=== PATIENT | female | born 1995 | race Caucasian/White ===

== ENCOUNTER → 2017-02-24 | Outpatient (CLI) | payer BC ==
[~2017-02-24] MED LIST: BCPILLS PO; HYDR-5688 PO; TIZA2CAP PO
[2017-02-28 01:02] LABS: CHLAMYDIA TRACH RNA*** NOT DETECTED (NOT DETECTED); GC (NEIS GONORRHOEAE)RNA** NOT DETECTED (NOT DETECTED)
== END | disposition home or self-care (01) ==
LOC: C.LABSPEC 17:17
PROVIDERS: ATTEND Obstetrics & Gynecology
DX: Z01.419 Encounter for gynecological examination (general) (routine) without abnormal findings (principal)

== ENCOUNTER 2017-04-06 04:45 | Emergency (ER) | payer BC ==
[~2017-04-06] VITALS: Ht 172.7 cm; Wt 106.4 kg
[~2017-04-06 04:45] MED LIST changes: -HYDR-5688 PO; -TIZA2CAP PO
[2017-04-06 04:49] VITALS: TEMP 36.5; Ht 172.7 cm; Wt 106.4 kg
[2017-04-06] MEDS ORDERED: ONDANSETRON INJ 2 MG/ML 2 ML VIAL IV STA (05:07)
[2017-04-06] MEDS ORDERED: MoRPHine SULFATE 4 MG/ML 1 ML CARP\\VIAL IV STA (05:07)
[2017-04-06] MEDS ORDERED: SODIUM CHLORIDE 0.9% 1000ML 1,000 ML IV STA ×2 (05:07)
[2017-04-06 05:27] VITALS: O2SAT 98
[2017-04-06 05:27] LABS: BASO % 0.1 %; BASO ABS # 0.02 K/uL (0-0.2); COMPLETE YES; EOS % 0.8 %; HEMATOCRIT 40.2 % (37-47); IG% 0.2 %; LYMPH % 19.7 %; LYMPH ABS # 2.89 K/uL (1.2-3.4); MEAN CELL VOLUME 92.2 fL (80-100); MEAN CORPUSCULAR HEMOGLOBIN 31.9 pg (25-34); MEAN CORPUSCULAR HGB CONC 34.6 g/dl (32-36); MEAN PLATELET VOLUME 8.6 fL (7.4-10.4); MONO % 5.4 %; NEUT % 73.8 %; PLATELET COUNT 273 K/uL (130-400); RED BLOOD COUNT 4.36 M/uL (4.2-5.4); WHITE BLOOD COUNT 14.65 K/uL (4.8-10.8)
[2017-04-06] MEDS ORDERED: TIZA2CAP PO (05:30)
[2017-04-06 05:45] LABS: BUN/CREATININE RATIO 12.6 (10-20); CALCIUM 9.4 mg/dl (8.5-10.1); CREATININE 0.81 mg/dl (0.60-1.20); POTASSIUM 3.8 mmol/L (3.5-5.1)
[2017-04-06 05:50] LABS: MANUAL MICROSCOPIC REQUIRED? NO; REVIEW REQ? NO; URINE APPEARANCE CLEAR (CLEAR); URINE BILIRUBIN NEG (NEG); URINE COLOR YELLOW; URINE EPITHELIAL CELL AUTO >30 /lpf (0-5); URINE NITRITE NEG (NEG); URINE PH 5.5 (4.5-7.5); URINE SPECIFIC GRAVITY 1.024 (1.000-1.030); UROBILINOGEN NEG (NEG); ZZUR CULT IF INDIC CLEAN CATCH YES
[2017-04-06 05:52] LABS: PREG INTERNAL NEGATIVE QC NEG CLEAR BACKGROUND; PREG INTERNAL POSITIVE QC POS CONTROL LINE
[2017-04-06] MEDS ORDERED: ONDANSETRON HOME PACK 4MG OD TAB PO ONE (06:45)
--- NOTE | 2017-04-06 06:48 | EMERGENCY ROOM VISIT NOTE ---
History First contact with patient: 04:55 Chief Complaint: ABDOMINAL PAIN Stated Complaint: RUQ PAIN RADIATES TO BACK Nursing Triage Summary: Pt reports right upper abdominal pain, chest pain, back and flank pain that started at 0330 today and awoke her from sleep. Pt states she had a similar episode 1 week ago and with time it went awake. Pt states that the first time she had similar pain was after eating fatty foods at a fair. Pt's mother states that the pt has been complaining of fullness in right flank area. Hx of SVT History of Present Illness The patient is a 22 year old female who presents to the Emergency Room with complaints of right upper quadrant pain for the past several hours and episode the other day. Patient states she had peach cobbler tonight for dinner and Blooming onion the other day when her symptoms started. Pain currently 8 out of 10. Nothing makes it better or worse. Patient denies chest pain, dyspnea, fever, chills, vomiting, diarrhea, urinary symptoms. Mother states she had her gallbladder out when she is 23 along with other relatives in the family. Review of Systems See HPI for pertinent positives & negatives. A total of 10 systems reviewed and were otherwise negative. Past Medical/Surgical History Medical Problems: (1) SVT (supraventricular tachycardia) Family History FHx: heart disease Hypertension Social History Smoking Status: Never Smoker Housing Status: lives with family Current/Historical Medications Scheduled Control Pills ( Control Pills), 1 TAB PO DAILY Tizanidine (Zanaflex), 2 MG PO TID/PRN Physical Exam Vital Signs Date Time Temp Pulse Resp B/P (MAP) Pulse Ox O2 Delivery O2 Flow Rate FiO2 04/06/17 06:20 60 04/06/17 06:07 64 17 139/70 100 Room Air 04/06/17 05:27 98 Room Air 04/06/17 05:25 59 17 120/72 98 Room Air 04/06/17 04:49 36.5 70 20 134/87 99 Room Air Physical Exam VITALS: Vitals are noted on the nurse's note and reviewed by myself. Vital signs stable. GENERAL: Pleasant female, in no acute distress, nondiaphoretic, well-developed well-nourished. SKIN: The skin was without rashes, erythema, edema, or bruising. There is no tenting of the skin. Capillary reflex less than 2 seconds. HEAD: Normocephalic atraumatic. EARS: External auditory canals clear, tympanic membranes pearly cuellar without erythema or effusion bilaterally. EYES: Pupils equal round and reactive to light and accommodation. Conjunctivae without injection, sclerae without icterus. Extraocular movements intact. NOSE: Patent, turbinates without inflammation or discharge. MOUTH: Mucous membranes moist. Pharynx without erythema or exudate. Uvula midline. Airway patent. Tongue does not deviate. NECK: Supple without nuchal rigidity. No lymphadenopathy. No thyromegaly. Cervical spine is nontender. No JVD. HEART: Regular rate and rhythm without murmurs gallops or rubs. LUNGS: Clear to auscultation bilaterally without wheezes, rales or rhonchi. No dullness to percussion. No retractions or accessory muscle use. ABDOMEN: Positive bowel sounds x 4. Normal tympanic percussion. Soft, tender to palpation right upper quadrant, no CVA tenderness, without masses or organomegaly. No guarding or rebound tenderness. MUSCULOSKELETAL: No muscle atrophy, erythema, or edema noted. NEURO: Patient was alert and oriented to person place and time. Normal sensation to light and sharp touch. No focal neurological deficits. Medical Decision & Procedures Laboratory Results 04/06/17 05:10 Red Blood Count 4.36, Mean Corpuscular Volume 92.2, Mean Corpuscular Hemoglobin 31.9, Mean Corpuscular Hemoglobin Concent 34.6, Mean Platelet Volume 8.6, Neutrophils (%) (Auto) 73.8, Lymphocytes (%) (Auto) 19.7, Monocytes (%) (Auto) 5.4, Eosinophils (%) (Auto) 0.8, Basophils (%) (Auto) 0.1, Neutrophils # (Auto) 10.80, Lymphocytes # (Auto) 2.89, Monocytes # (Auto) 0.79, Eosinophils # (Auto) 0.12, Basophils # (Auto) 0.02 04/06/17 05:10 Test 04/06/17 05:10 04/06/17 05:20 White Blood Count 14.65 K/uL (4.8-10.8) Red Blood Count 4.36 M/uL (4.2-5.4) Hemoglobin 13.9 g/dL (12.0-16.0) Hematocrit 40.2 % (37-47) Mean Corpuscular Volume 92.2 fL (80-100) Mean Corpuscular Hemoglobin 31.9 pg (25-34) Mean Corpuscular Hemoglobin Concent 34.6 g/dl (32-36) Platelet Count 273 K/uL (130-400) Mean Platelet Volume 8.6 fL (7.4-10.4) Neutrophils (%) (Auto) 73.8 % Lymphocytes (%) (Auto) 19.7 % Monocytes (%) (Auto) 5.4 % Eosinophils (%) (Auto) 0.8 % Basophils (%) (Auto) 0.1 % Neutrophils # (Auto) 10.80 K/uL (1.4-6.5) Lymphocytes # (Auto) 2.89 K/uL (1.2-3.4) Monocytes # (Auto) 0.79 K/uL (0.11-0.59) Eosinophils # (Auto) 0.12 K/uL (0-0.5) Basophils # (Auto) 0.02 K/uL (0-0.2) RDW Standard Deviation 41.7 fL (36.4-46.3) RDW Coefficient of Variation 12.4 % (11.5-14.5) Immature Granulocyte % (Auto) 0.2 % Immature Granulocyte # (Auto) 0.03 K/uL (0.00-0.02) Anion Gap 4.0 mmol/L (3-11) Est Creatinine Clear Calc Drug Dose 141.5 ml/min Estimated GFR () 121.2 Estimated GFR (Non- 104.6 BUN/Creatinine Ratio 12.6 (10-20) Calcium Level 9.4 mg/dl (8.5-10.1) Total Bilirubin 0.4 mg/dl (0.2-1) Direct Bilirubin 0.1 mg/dl (0-0.2) Aspartate Amino Transf (AST/SGOT) 63 U/L (15-37) Alanine Aminotransferase (ALT/SGPT) 63 U/L (12-78) Alkaline Phosphatase 90 U/L (45-117) Total Protein 8.1 gm/dl (6.4-8.2) Albumin 3.6 gm/dl (3.4-5.0) Lipase 181 U/L (73-393) Human Chorionic Gonadotropin, Qual NEG (NEG) Urine Color YELLOW Urine Appearance CLEAR (CLEAR) Urine pH 5.5 (4.5-7.5) Urine Specific [place] 1.024 (1.000-1.030) Urine Protein NEG (NEG) Urine Glucose (UA) NEG (NEG) Urine Ketones NEG (NEG) Urine Occult Blood NEG (NEG) Urine Nitrite NEG (NEG) Urine Bilirubin NEG (NEG) Urine Urobilinogen NEG (NEG) Urine Leukocyte Esterase TRACE (NEG) Urine WBC (Auto) 1-5 /hpf (0-5) Urine RBC (Auto) 0-4 /hpf (0-4) Urine Hyaline Casts (Auto) 1-5 /lpf (0-5) Urine Epithelial Cells (Auto) >30 /lpf (0-5) Urine Bacteria (Auto) 1+ (NEG) Medications Administered Medications (Trade) Dose Ordered Sig/Miryam Route Start Time Stop Time Status Last Admin Dose Admin Morphine Sulfate (MoRPHine SULFATE INJ) 4 mg NOW STAT IV 04/06/17 05:07 04/06/17 05:08 DC 04/06/17 05:20 4 MG Ondansetron HCl (Zofran Inj) 4 mg NOW STAT IV 04/06/17 05:07 04/06/17 05:08 DC 04/06/17 05:20 4 MG Sodium Chloride 1,000 ml @ 999 mls/hr Q1H1M STAT IV 04/06/17 05:07 04/06/17 06:07 DC 04/06/17 05:21 999 MLS/HR Sodium Chloride 1,000 ml @ 125 mls/hr Q8H STAT IV 04/06/17 05:07 04/06/17 13:06 04/06/17 05:21 125 MLS/HR ED Course Prior records/ancillary studies reviewed. Triage Nursing notes reviewed. Additional history obtained from family. The patient's history was concerning for abdominal pain. Differential diagnosis: Etiologies such as appendicitis, diverticulitis, PUD, biliary pathology, UTI, pancreatitis, obstruction, mesenteric ischemia, aortic pathology, infections, inflammatory bowel disease, renal colic, as well as others were entertained. Physical examination findings: As above. ER treatment provided: Morphine, Zofran, IV fluids On reassessment the patient felt better. Diagnostics interpreted by me: The labs revealed mild leukocytosis. Negative hCG. Negative urine Imaging studies: US RUQ: Gallbladder is packed of gallstones. No gallbladder wall thickening or pericholecystic fluid. Positive sonographic Hughes's sign. The common bile duct measures up to 3.8 mm. The liver, pancreas, and right kidney are unremarkable. Radiologist: Eliseo Powers MD Exam and history seem consistent with biliary colic. Patient was neurovascularly and neurologically intact. Patient did not have acute abdomen on exam. She is well-appearing. She is tolerating fluids. Her pain was managed. She is advised follow-up family care in a few days for further workup on her gallbladder and to avoid fatty foods. She is advised to return to the ER immediately for severe pain, fevers, vomiting, worsening signs or symptoms or as needed.By the evaluation outlined above emergent etiologies such as appendicitis, diverticulitis, PUD, UTI, pancreatitis, obstruction, mesenteric ischemia, aortic pathology, infections, inflammatory bowel disease, renal colic , as well as others were deemed relatively unlikely. The pt informed about the findings as listed above. All questions were answered and pleased with the treatment. Return instructions were outlined and the patient was discharged in stable condition. Outpatient prescription management: [email or web address] Referral: The patient was referred back to their primary care physician for follow-up in 2 to 3 days for a recheck of the current condition. Case reviewed by attending. Medical Decision As above Medication Reconcilliation Current Medication List: was personally reviewed by me Blood Pressure Screening Patient's blood pressure: Normal blood pressure Impression Primary Impression: Biliary colic Departure Information Dispostion Home / Self-Care Condition GOOD Referrals Dima Rose M.D. (PCP) Patient Instructions My [facility] Additional Instructions DO NOT drive, drink alcohol, operate machinery, or perform dangerous activities today. You were given medications in the ER that can affect your ability to safely function or operate a vehicle. Recommend avoid fatty foods as this can cause gallbladder attacks. Recommend bland diet. Recommend outpatient HIDA scan for further workup on your gallbladder. Family care doctor can order this. Ibuprofen(Motrin, Advil) may be used for fever or pain. Use 600mg every six hours as needed. Take with food. Avoid using more than 2400mg in a 24 hour period. Do not use 2400mg per day for more than three consecutive days without physician direction. Prolonged inappropriate use can lead to stomach upset or ulcers. (AND/OR) Acetaminophen(Tylenol) may be used for fever or pain. Use 1000mg every six hours as needed. Avoid using more than 3000mg in a 24 hour period. Zofran 4mg: Take one every six hours as needed for nausea. Avoid alcohol, operating machinery or dangerous equipment, working on ladders or roofs, DRIVING , or situations where being under the influence may be dangerous. Rest and drink plenty of fluids as tolerated. Slow sips of water or sports drinks are recommended instead of large amounts all at once. Continue current medications. Return to the ER immediately for worsening or persistent abdominal pain, vomiting, fevers, chest pains, difficulty breathing, black or bloody stools, worsening of your condition, or as needed. Follow up with your primary physician in 2-3 days for a recheck of your current condition.
[2017-04-06 07:00] VITALS: BP 102/74; PULSE 52; O2SAT 99
[2017-04-06] MEDS ORDERED: OXYCODONE IR HOME PACK PO ONE (07:00)
--- NOTE | 2017-04-06 07:14 | DIAGNOSTIC IMAGING REPORT ---
ABDOMINAL ULTRASOUND, RIGHT UPPER QUADRANT HISTORY: Right upper quadrant pain. COMPARISON: None. FINDINGS: Liver is sonographically normal. There is no biliary ductal dilatation. The common bile duct measures 4 mm in caliber. The gallbladder is filled with gallstones. There is no gallbladder wall thickening or pericholecystic fluid. A sonographic Hughes sign was reported by the technologist. The pancreatic body is normal. The head and tail are partially obscured by overlying bowel gas. There is no right hydronephrosis. IMPRESSION: 1. Gallbladder filled with gallstones. No gallbladder wall thickening or pericholecystic fluid. Sonographic Hughes sign reported by the technologist. A hepatobiliary scan could be performed as indicated. 2. No biliary ductal dilatation. 3. Partially obscured pancreas. Electronically signed by: Edward Mason M.D. 04/06/2017 7:12 AM Dictated Date/Time: 04/06/2017 7:09 AM
[2017-04-10] MEDS ORDERED: HYDR-5688 PO (10:04)
== END 2017-04-06 07:00 | disposition home or self-care (01) ==
LOC: C.EDB 04:46 → C.EDA 07:00
DX: K80.50 Calculus of bile duct without cholangitis or cholecystitis without obstruction (principal); I47.1 Supraventricular tachycardia; Z79.3 Long term (current) use of hormonal contraceptives; Z79.899 Other long term (current) drug therapy

== ENCOUNTER 2017-04-10 07:26 | Day surgery (SDC) | payer BC ==
[2017-04-07 10:54] VITALS: BMI 35.0
[2017-04-10] VITALS (8 sets, daily range): BP systolic 104–131; BP diastolic 61–74; PULSE 57–83; TEMP 36.6–37; O2SAT 96–99; Ht 172.7 cm; Wt 104.5 kg
[~2017-04-10] VITALS: Ht 172.7 cm; Wt 104.5 kg
[~2017-04-10 07:26] MED LIST changes: +CEFUROXIME IV 1,500 MG in DEXTROSE 5% 100ML IV SCH; +LACTATED RINGER'S 1000ML 1,000 ML IV SCH; +TIZA2CAP PO
[2017-04-10] MEDS ORDERED: FENTANYL CITRATE INJ 50 MCG/1 ML 2 ML VIAL ONE ×2 (07:51→09:02)
[2017-04-10] MEDS ORDERED: MIDAZOLAM HCL 1 MG/ML 2ML VIAL ONE (07:51)
--- NOTE | 2017-04-10 08:29 | History & Physical Bridge Note ---
H&P Re-Evaluation Bridge Note: I have examined the patient, reviewed the History & Physical and in the interval since the performance of the History & Physical I have noted the following changes of clinical significance: No changes noted
[2017-04-10] MEDS ORDERED: BUPIVACAINE 0.5 % 5 MG/1 ML MPF 30ML VIAL ONE (08:32)
[2017-04-10] MEDS ORDERED: PROPOFOL IV EMULSION 10 MG/ML 20 ML VIAL IV ONE (09:01)
[2017-04-10] MEDS ORDERED: DEXAMETHASONE SOD INJ 4 MG/ML VIAL ONE (09:01)
[2017-04-10] MEDS ORDERED: LARYING-O-JET KIT (LTA) ONE ×2 (09:01)
[2017-04-10] MEDS ORDERED: CISATRACURIUM BESYLATE IV SOLN 2 MG/ML 10 ML VIAL ONE (09:01)
[2017-04-10] MEDS ORDERED: ONDANSETRON INJ 2 MG/ML 2 ML VIAL ONE (09:01)
[2017-04-10] MEDS ORDERED: KETOROLAC TROMETHAMINE 30 MG/ML VIAL ONE (09:01)
[2017-04-10] MEDS ORDERED: GLYCOPYRROLATE INJ 0.2 MG/ML VIAL ONE (09:01)
[2017-04-10] MEDS ORDERED: NEOSTIGMINE METHYLSULFATE 5 MG/5 ML SYR ONE (09:01)
[2017-04-10] MEDS ORDERED: LIDOCAINE HCL 2% 2 ML VIAL (20MG/ML) ONE (09:01)
[2017-04-10] MEDS ORDERED: ATROPINE SULFATE 0.1 MG/ML 5ML SYR IV PRN (09:45)
[2017-04-10] MEDS ORDERED: NALOXONE HCL 0.4 MG/1 ML VIAL/CARP IV PRN (09:45)
[2017-04-10] MEDS ORDERED: HYDROmorphone INJ 1 MG/ML SYR IV PRN (09:45)
[2017-04-10] MEDS ORDERED: FLUMAZENIL 0.1 MG/1 ML 10 ML VIAL IV PRN (09:45)
[2017-04-10] MEDS ORDERED: EpHEDrine SULFATE INJ 50 MG/ML AMP IV PRN (09:45)
[2017-04-10] MEDS ORDERED: ONDANSETRON INJ 2 MG/ML 2 ML VIAL IV PRN ×2 (09:45→10:00)
[2017-04-10] MEDS ORDERED: PROMETHAZINE HCL INJ 12.5 MG in SODIUM CHLORIDE 0.9% 50ML 50 ML IV PRN (09:45)
[2017-04-10] MEDS ORDERED: LACTATED RINGER'S 1000ML 1,000 ML IV SCH ×2 (09:54→11:15)
--- NOTE | 2017-04-10 09:54 | [facility] Operative Report ---
Operative Report Operative Date Apr 10, 2017. Pre-Operative Diagnosis Cholelithiasis Post-Operative Diagnosis Same Procedure(s) Performed Laparoscopic Cholecystectomy Surgeon Dr Hoskins Skiff Operator Surgeon(s) Juan Albert PA-C Estimated Blood Loss 10ML Findings chronic cholecystitis with gb full of stones Specimens A. Gallbladder Anesthesia gen Complication(s) None Disposition Recovery Room / PACU I attest to the content of the Intraoperative Record and any orders documented therein. Any exceptions are noted below.
[2017-04-10] MEDS ORDERED: MoRPHine SULFATE 2 MG/ML CARP IV PRN (10:00)
[2017-04-10] MEDS ORDERED: PROMETHAZINE HCL INJ 25 MG in SODIUM CHLORIDE 0.9% 50ML 50 ML IV PRN (10:00)
[2017-04-10] MEDS ORDERED: HYDROCODONE/ACETAMOPHEN 5/325MG TAB PO PRN (10:00)
[2017-04-10] MEDS ORDERED: HYDR-5688 PO (10:04)
--- NOTE | 2017-04-10 10:05 | Discharge Instructions ---
Discharge Instructions Date of Service Apr 10, 2017. Admission Reason for Admission: Chronic Cholecystitis Discharge Discharge Diagnosis / Problem: chronic cholecystitis Discharge Goals Goal(s): Decrease discomfort, Improve function, Improve disease control Activity Recommendations Activity Limitations: as noted below Lifting Limitations: no more than 25 pounds Exercise/Sports Limitations: until after follow-up appointment May Resume Sexual Activity: when tolerated Shower/Bathe: tomorrow Driving or Machine Use: resume 3 days after discharge SPECIAL CARE INSTRUCTIONS: * Cover incisions and change daily for comfort/drainage. may leave uncovered with dermabond * May use ibuprofen for pain as tolerated. * Expect some swelling and bruising. Call your doctor if: * Temperature above 101 degrees * Pain not relieved by pain medicine ordered * There is increased drainage or redness from any incision * You have any unanswered questions or concerns [phone]. FOLLOW UP VISIT: If not already scheduled, please call the office for a follow-up visit. for next week- some suture removal OFFICE PHONE NUMBER: Dr. Hoskins Office . Current Hospital Diet Patient's current hospital diet: Regular Diet Discharge Diet Recommended Diet: Regular Diet Procedures Procedures Performed: Laparoscopic Cholecystectomy Pending Studies Studies pending at discharge: no Medical Emergencies . Who to Call and When: Medical Emergencies: If at any time you feel your situation is an emergency, please call 911 immediately. . Non-Emergent Contact Non-Emergency issues call your: Primary Care Provider, Surgeon . "Provider Documentation" section prepared by Bobby Hoskins. . VTE Core Measure Inpt VTE Proph given/why not?: SCD's
[2017-04-10] MEDS ORDERED: HYDROmorphone INJ 1 MG/ML SYR ONE (10:07)
--- NOTE | 2017-04-10 10:20 | OPERATIVE REPORT ---
DATE OF OPERATION: 04/10/2017 NAME OF OPERATION: Laparoscopic cholecystectomy. PREOPERATIVE DIAGNOSES: Biliary colic and chronic cholecystitis. POSTOPERATIVE DIAGNOSES: Same. STAFF SURGEON: Bobby Hoskins MD WAREHOUSE INVENTORY CLERK: Max Albert PA-C ANESTHESIA: General. PROCEDURE: The patient was brought in the operating room and placed on the operating table in supine position. Pneumatic stockings and orogastric tube were placed. Using 0.5% plain Marcaine, all incisions were anesthetized. Incision was made above the umbilicus, carrying dissection down to the fascia, placing a Veress needle producing pneumoperitoneum. An 11 mm port was placed at this level and then under visualization, three 5 mm ports were placed, 1 cephalad and 2 laterally. Gallbladder was grasped and retracted. She did have multiple gallstones with a large stone in the neck of the gallbladder. Dissection was carried out at the candace hepatis, identifying the cystic duct, which was clipped and transected and the cystic artery identified, clipped and transected, then the gallbladder dissected away from the liver bed. There was evidence of chronic cholecystitis. The gallbladder was then placed in an Endobag. After appropriate hemostasis and irrigation, the Endobag was removed through the umbilical site. We did have to enlarge the skin and fascial defects because of the numerous large stones within the gallbladder. At this point, the fascia at the umbilicus closed using interrupted 0 PDS suture. Skin and subcutaneous tissue reapproximated using 2-0 plain catgut suture then the skin reapproximated at the umbilicus using 5-0 Prolene suture. Other sites were closed using subcuticular 4-0 Monocryl and Dermabond. The patient was transferred to recovery room in stable condition. I attest to the content of the Intraoperative Record and any orders documented therein. Any exception s are noted below.
--- NOTE | 2017-04-10 10:57 | Anesthesiology Progress Note ---
Anesthesia Post Op Note Date & Time Apr 10, 2017 at 10:57 Vital Signs Pain Intensity: 4 Vital Signs Past 12 Hours Date Time Temp Pulse Resp B/P (MAP) Pulse Ox O2 Delivery O2 Flow Rate FiO2 04/10/17 10:50 36.2 49 12 129/78 100 Nasal Cannula 2 04/10/17 10:40 47 12 126/82 100 Nasal Cannula 2 04/10/17 10:30 47 17 130/82 100 Nasal Cannula 2 04/10/17 10:20 47 12 132/85 100 Oxymask 10 04/10/17 10:10 48 15 130/82 100 Oxymask 10 04/10/17 10:03 36.4 69 16 148/78 100 Oxymask 10 04/10/17 07:40 37 63 18 117/62 (80) 99 Room Air Notes Mental Status: alert / awake / arousable, participated in evaluation Pt Amnestic to Procedure: Yes Nausea / Vomiting: adequately controlled Pain: adequately controlled Airway Patency, RR, SpO2: stable & adequate BP & HR: stable & adequate Hydration State: stable & adequate Anesthetic Complications: no major complications apparent
[2017-04-10] MEDS ORDERED: IV FLUIDS COMPLETED PRN (11:45)
[2017-04-10] MEDS: MoRPHine SULFATE 4 MG/ML 1 ML CARP\\VIAL IV PRN ×2 (12:36→21:18)
[2017-04-10] MEDS: CEFUROXIME IV 1,500 MG in DEXTROSE 5% 100ML 100 ML IV SCH (16:16)
[2017-04-10] MEDS: KETOROLAC TROMETHAMINE 30 MG/ML VIAL IV. SCH ×2 (16:17→21:08)
[2017-04-10] MEDS: HYDROCODONE/ACETAMOPHEN 5/325MG TAB PO PRN (21:07)
[2017-04-11] MEDS: CEFUROXIME IV 1,500 MG in DEXTROSE 5% 100ML 100 ML IV SCH (00:07)
[2017-04-11 03:55] VITALS: BP 116/72; PULSE 74; TEMP 36.7; O2SAT 98
[2017-04-11] MEDS: HYDROCODONE/ACETAMOPHEN 5/325MG TAB PO PRN ×2 (05:58→10:59)
--- NOTE | 2017-04-11 07:28 | DISCHARGE SUMMARY ---
PRINCIPAL DIAGNOSIS: Chronic cholecystitis. PROCEDURES: The patient underwent laparoscopic cholecystectomy. HISTORY OF PRESENT ILLNESS: The patient is a 22-year-old female who recently visited the ER with abdominal pain and found with her gallbladder to be packed full of gallstones. HOSPITAL COURSE: The patient was brought in the hospital on 04/10/2017 where she underwent laparoscopic cholecystectomy. She did tolerate the procedure very well. Her gallbladder was completely full of relatively small gallstones and some larger gallstones with stones in the neck of the gallbladder. She is doing quite well overnight and is felt stable for discharge home today to be followed in the surgical clinic next week.
[2017-04-11 07:52] VITALS: BP 99/65; PULSE 54; TEMP 36.6; O2SAT 97
[2017-04-11 10:45] VITALS: BP 99/65; PULSE 54; TEMP 36.6; O2SAT 97
== END 2017-04-11 11:09 | disposition home or self-care (01) ==
LOC: C.ACU 07:26 → C.MSN 09:58 → ENRESERV 11:34
PROVIDERS: ADMIT Surgery; ATTEND Surgery
DX: K80.60 Calculus of gallbladder and bile duct with cholecystitis, unspecified, without obstruction (principal); F41.8 Other specified anxiety disorders; Z90.89 Acquired absence of other organs; Z82.49 Family history of ischemic heart disease and other diseases of the circulatory system; Z80.52 Family history of malignant neoplasm of bladder; Z80.0 Family history of malignant neoplasm of digestive organs; Z98.1 Arthrodesis status; M41.34 Thoracogenic scoliosis, thoracic region; E66.01 Morbid (severe) obesity due to excess calories

== ENCOUNTER 2017-11-21 10:52 | Inpatient (IN) | payer BC ==
[~2017-11-21] VITALS: Ht 175.3 cm; Wt 93.4 kg
[~2017-11-21 10:52] MED LIST changes: -CEFUROXIME IV 1,500 MG in DEXTROSE 5% 100ML IV SCH; -LACTATED RINGER'S 1000ML 1,000 ML IV SCH
[2017-11-21] MEDS ORDERED: LIDOCAINE HCL 2% VISC SOLN 20 ML UDC PO STA (12:01)
[2017-11-21] MEDS ORDERED: HYDROmorphone INJ 0.5 MG/0.5 ML SYR IV STA ×2 (12:01→12:30)
[2017-11-21] MEDS ORDERED: SODIUM CHLORIDE 0.9% 1000ML 1,000 ML IV STA ×2 (12:01→13:58)
[2017-11-21] MEDS ORDERED: FAMOTIDINE 20MG/5ML IV PUSH IV STA (12:01)
[2017-11-21] MEDS ORDERED: ALUMINUM/MAGNESIUM SUSP 30 ML UDC PO STA (12:01)
[2017-11-21] MEDS ORDERED: ONDANSETRON INJ 2 MG/ML 2 ML VIAL IV STA (12:01)
[2017-11-21 12:07] LABS: BASO % 0.1 %; BASO ABS # 0.01 K/uL (0-0.2); EOS % 0.1 %; EOS ABS # 0.02 K/uL (0-0.5); HEMOGLOBIN 15.1 g/dL (12.0-16.0); IG# 0.03 K/uL (0.00-0.02); LYMPH % 8.8 %; LYMPH ABS # 1.66 K/uL (1.2-3.4); MEAN CELL VOLUME 88.8 fL (80-100); MEAN CORPUSCULAR HEMOGLOBIN 31.9 pg (25-34); MONO % 6.1 %; MONO ABS # 1.15 K/uL (0.11-0.59); NEUT % 84.7 %; NEUT ABS # 16.06 K/uL (1.4-6.5); PLATELET COUNT 249 K/uL (130-400); RED CELL DISTRIBUTION WIDTH CV 12.6 % (11.5-14.5); RED CELL DISTRIBUTION WIDTH SD 40.5 fL (36.4-46.3); WHITE BLOOD COUNT 18.93 K/uL (4.8-10.8)
[2017-11-21 12:25] LABS: ALBUMIN 3.9 gm/dl (3.4-5.0); CALCIUM 9.8 mg/dl (8.5-10.1); CREATININE 0.78 mg/dl (0.60-1.20); POTASSIUM 3.7 mmol/L (3.5-5.1)
[2017-11-21 12:28] LABS: TOTAL PROTEIN 8.8 gm/dl (6.4-8.2)
[2017-11-21] MEDS ORDERED: OPTIRAY 320 IV PRN (12:45)
--- NOTE | 2017-11-21 13:21 | DIAGNOSTIC IMAGING REPORT ---
CT SCAN OF THE ABDOMEN AND PELVIS WITH IV CONTRAST CLINICAL HISTORY: Epigastric abdominal pain. COMPARISON STUDY: Abdominal ultrasound dated 04/06/2017. TECHNIQUE: Following the IV administration of 94 cc of Optiray 320, CT scan of the abdomen and pelvis is performed from the lung bases to the proximal femora. Images are reviewed in the axial, sagittal, and coronal planes. IV contrast was administered without complication. A dose lowering technique was utilized adhering to the principles of ALARA. The examination is degraded by streak artifact from metallic orthopedic spinal hardware. FINDINGS: Lung bases: The heart is normal in size and without pericardial effusion. The lung bases are clear noting dependent atelectasis. Bilateral nipple piercings are noted. Liver: The contrast-enhanced liver is normal in size, contour, and attenuation. There is mild central intrahepatic biliary ductal dilatation. The hepatic veins and portal veins are patent. Gallbladder: Surgically absent noting clips in the gallbladder fossa. Spleen: Normal in size and attenuation. Pancreas: The pancreas appears mildly edematous. Peripancreatic stranding and fluid is identified. Fluid is also seen tracking inferiorly within the right retroperitoneal space. The appearance is consistent with acute pancreatitis. The gland enhances homogeneously. No organized peripancreatic fluid collection is identified. The splenic vein is patent. Adrenal glands: Unremarkable. Kidneys: The contrast enhanced kidneys are normal in size and without hydronephrosis. The kidneys enhance symmetrically. Abdominal vasculature: The abdominal aorta is normal in course and caliber. Bowel: The small bowel and colon are normal in course and caliber. The appendix is normal as visualized. Peritoneum: There is no intraperitoneal free air or abdominal ascites. Lymphadenopathy: None. Pelvic viscera: The bladder, uterus, and adnexa are normal as visualized. Small ovarian follicles are noted. Trace free fluid is identified in the cul-de-sac. Skeletal structures: No lytic or blastic lesions are seen. Fusion hardware is noted at the thoracolumbar junction. Mild thoracolumbar scoliosis is observed. Mild sclerotic change is noted in the sacroiliac joints. IMPRESSION: 1. Findings are consistent with acute pancreatitis. 2. The pancreas enhances homogeneously. The splenic vein is patent and no organized peripancreatic fluid collection is identified. Electronically signed by: Paulo Almaguer M.D. 11/21/2017 1:19 PM Dictated Date/Time: 11/21/2017 1:14 PM
--- NOTE | 2017-11-21 13:26 | DIAGNOSTIC IMAGING REPORT ---
CT ANGIOGRAPHY OF THE CHEST, PULMONARY EMBOLUS PROTOCOL CLINICAL HISTORY: Epigastric and back pain. Elevated d-dimer. COMPARISON STUDY: No previous studies for comparison. TECHNIQUE: Following IV administration of 94 mL of Optiray-320, helical axial images of the chest were obtained utilizing the pulmonary embolus protocol. Maximal intensity projections and sagittal and coronal reformats were viewed on an independent 3D workstation. IV contrast was administered without complication. A dose lowering technique was utilized adhering to the principles of ALARA. CT DOSE: 987.92 mGy.cm FINDINGS: No central or lobar pulmonary emboli are identified. The segmental and subsegmental pulmonary arteries are suboptimally assessed due to streak artifact from the scoliosis hardware as well as suboptimal vascular opacification. The size of the heart is normal. There is no thoracic aortic dissection. Central airways are patent. There is no consolidation. No pneumothorax or pleural effusion is noted. There is no consolidation to suggest pneumonia. Mild subpleural bilateral lower lobe opacities reflect atelectasis. IMPRESSION: 1. No central or lobar pulmonary emboli. Segmental and subsegmental pulmonary arteries suboptimally assessed due to streak artifact from the spinal hardware and suboptimal vascular opacification. 2. No acute intrathoracic findings. Electronically signed by: Edward Mason M.D. 11/21/2017 1:24 PM Dictated Date/Time: 11/21/2017 1:14 PM
[2017-11-21] MEDS: HYDROmorphone INJ 0.5 MG/0.5 ML SYR IV PRN ×4 (14:13→23:06)
[2017-11-21] MEDS ORDERED: ONDANSETRON INJ 2 MG/ML 2 ML VIAL IV PRN (15:00)
[2017-11-21] MEDS ORDERED: NORETAB3 PO (15:11)
--- NOTE | 2017-11-21 16:26 | DIAGNOSTIC IMAGING REPORT ---
ULTRASOUND RIGHT UPPER QUADRANT ABDOMEN CLINICAL HISTORY: Epigastric abdominal pain. Pancreatitis. COMPARISON STUDY: Abdominal CT dated 11/21/2017. TECHNIQUE: Real-time, grayscale, and color flow sonography of the right upper quadrant of the abdomen was performed. Images are reviewed in the transverse and longitudinal planes. FINDINGS: Liver: The liver is normal in size and echotexture. There is no intrahepatic biliary ductal dilatation. The main portal vein is patent. Gallbladder: The gallbladder is surgically absent. The common bile duct measures up to 0.4 cm in diameter. No filling defects identified within the common duct by ultrasound. Pancreas: Visualized portions of the pancreatic head and body are normal in appearance. The splenic vein is patent. Right kidney: Survey images of the right kidney demonstrate normal size and echotexture. There is no hydronephrosis. Ascites: None. IMPRESSION: Unremarkable sonographic assessment of the right upper quadrant noting status post cholecystectomy. No intra or extrahepatic biliary ductal dilatation is identified. Electronically signed by: Paulo Almaguer M.D. 11/21/2017 4:24 PM Dictated Date/Time: 11/21/2017 4:24 PM
[2017-11-21 16:50] VITALS: BP 109/68; PULSE 73; TEMP 36.8; O2SAT 96; O2SAT 98; Ht 175.3 cm; Wt 93.4 kg
--- NOTE | 2017-11-21 17:01 | History and Physical ---
History & Physical Date & Time of Service: Nov 21, 2017 at 15:11 Chief Complaint: Abdominal Pain Into Upper Back Primary Care Physician: Dima Rose M.D. History of Present Illness Source: patient, parent, clinic records, hospital records 22-year-old female presents with acute epigastric pain for the last several days. She reports inability to eat because of severe pain. She denies any nausea or vomiting or diarrhea. Mother adds that patient has had a dull epigastric pain in her abdomen for approximately 1 month. The patient reports some fevers that were not documented at home and some chills. She reports having some recent sinus infections and colds that were not treated by a physician in the last few weeks. Sick contacts included family members. Importantly, 1 month ago her oral contraceptive dose was increased. She is on this for PCO S. She also has a history of SVT that is not recurrent and she is not on atenolol. She is also not on metformin. She has a history of a gallbladder removal last fall for symptomatic cholelithiasis. In the ER, her blood pressure is 124/78 pulse 66 she is afebrile and oxygenating well on room air. Lab work reveals a white count of 19,000, elevated liver enzymes (AST 219/ALT 169/AL P1 20), total bili is 2, total protein is 8.8, lipase is 57,000, troponin is negative. EKG reveals normal sinus rhythm at a normal rate. Urine test is negative. D-dimer was elevated and following this CTA was performed revealing no PE or other acute pulmonary issues. CT of the abdomen pelvis was consistent with acute pancreatitis. Past Medical/Surgical History Medical Problems: (1) Chronic cholecystitis with calculus Status: Chronic (2) On oral contraceptive pills for non-contraception indication Status: Chronic (3) PCOS (polycystic ovarian syndrome) Status: Chronic (4) SVT (supraventricular tachycardia) Status: Chronic Surgical Problems: (1) Previous back surgery Status: Chronic (2) S/P harley Status: Chronic (3) S/P tonsillectomy Status: Chronic Family History FHx: heart disease Hypertension Social History Smoking Status: Never Smoker Smokeless Tobacco Use: No Alcohol Use: none Drug Use: none Marital Status: single Housing status: lives with family Occupational Status: employed Immunizations History of Influenza Vaccine: Unknown History of Tetanus Vaccine?: Unknown History of Pneumococcal: Unknown History of Hepatitis B Vaccine: Unknown Allergies Coded Allergies: No Known Allergies (Unverified , 11/21/17) Home Medications Scheduled Norethindrone Acet & Eth Estra (), 1 TAB PO UD Tizanidine (Zanaflex), 2 MG PO TID/PRN Review of Systems At least 10 systems were reviewed and negative except as indicated in HPI. Physical Exam Vital Signs Date Time Temp Pulse Resp B/P (MAP) Pulse Ox O2 Delivery O2 Flow Rate FiO2 11/21/17 14:30 76 16 139/76 100 Room Air 11/21/17 13:13 63 11/21/17 12:35 72 18 132/80 99 Room Air 11/21/17 11:07 36.7 66 18 124/78 98 Room Air General Appearance: WD/WN, no apparent distress Head: normocephalic, atraumatic Eyes: normal inspection, PERRL, sclerae normal ENT: normal ENT inspection, hearing grossly normal, pharynx normal Neck: supple, no adenopathy, no JVD, trachea midline Respiratory/Chest: lungs clear, normal breath sounds, no respiratory distress, no accessory muscle use Cardiovascular: regular rate, rhythm, no edema, no gallop, no JVD, no murmur, normal peripheral pulses Abdomen/GI: normal bowel sounds, soft, no organomegaly, + tenderness ( Epigastric) Back: normal inspection Extremities/Musculoskelatal: normal inspection, no calf tenderness, no pedal edema, normal range of motion 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, no motor/sensory deficits, alert, normal mood/affect, oriented x 3 Skin: normal color, warm/dry, no rash Diagnostics Laboratory Results 11/21/17 11:40 Red Blood Count 4.73, Mean Corpuscular Volume 88.8, Mean Corpuscular Hemoglobin 31.9, Mean Corpuscular Hemoglobin Concent 36.0, Mean Platelet Volume 9.0, Neutrophils (%) (Auto) 84.7, Lymphocytes (%) (Auto) 8.8, Monocytes (%) (Auto) 6.1, Eosinophils (%) (Auto) 0.1, Basophils (%) (Auto) 0.1, Neutrophils # (Auto) 16.06, Lymphocytes # (Auto) 1.66, Monocytes # (Auto) 1.15, Eosinophils # (Auto) 0.02, Basophils # (Auto) 0.01 11/21/17 11:40 Test 11/21/17 11:36 11/21/17 11:40 Urine Color DK YELLOW Urine Appearance CLOUDY (CLEAR) Urine pH 5.0 (4.5-7.5) Urine Specific Alden 1.013 (1.000-1.030) Urine Protein NEG (NEG) Urine Glucose (UA) NEG (NEG) Urine Ketones NEG (NEG) Urine Occult Blood NEG (NEG) Urine Nitrite NEG (NEG) Urine Bilirubin 1+ (NEG) Urine Urobilinogen NEG (NEG) Urine Leukocyte Esterase SMALL (NEG) Urine WBC (Auto) 1-5 /hpf (0-5) Urine RBC (Auto) 0-4 /hpf (0-4) Urine Hyaline Casts (Auto) 1-5 /lpf (0-5) Urine Epithelial Cells (Auto) >30 /lpf (0-5) Urine Bacteria (Auto) 1+ (NEG) Urine Pathogenic Casts /lpf (0) Urine Test NEG (NEG) White Blood Count 18.93 K/uL (4.8-10.8) Red Blood Count 4.73 M/uL (4.2-5.4) Hemoglobin 15.1 g/dL (12.0-16.0) Hematocrit 42.0 % (37-47) Mean Corpuscular Volume 88.8 fL (80-100) Mean Corpuscular Hemoglobin 31.9 pg (25-34) Mean Corpuscular Hemoglobin Concent 36.0 g/dl (32-36) Platelet Count 249 K/uL (130-400) Mean Platelet Volume 9.0 fL (7.4-10.4) Neutrophils (%) (Auto) 84.7 % Lymphocytes (%) (Auto) 8.8 % Monocytes (%) (Auto) 6.1 % Eosinophils (%) (Auto) 0.1 % Basophils (%) (Auto) 0.1 % Neutrophils # (Auto) 16.06 K/uL (1.4-6.5) Lymphocytes # (Auto) 1.66 K/uL (1.2-3.4) Monocytes # (Auto) 1.15 K/uL (0.11-0.59) Eosinophils # (Auto) 0.02 K/uL (0-0.5) Basophils # (Auto) 0.01 K/uL (0-0.2) RDW Standard Deviation 40.5 fL (36.4-46.3) RDW Coefficient of Variation 12.6 % (11.5-14.5) Immature Granulocyte % (Auto) 0.2 % Immature Granulocyte # (Auto) 0.03 K/uL (0.00-0.02) D-Dimer 1460 ug/L FEU (0-500) Anion Gap 9.0 mmol/L (3-11) Est Creatinine Clear Calc Drug Dose 140.6 ml/min Estimated GFR () 126.8 Estimated GFR (Non- 109.4 BUN/Creatinine Ratio 6.8 (10-20) Calcium Level 9.8 mg/dl (8.5-10.1) Total Bilirubin 2.0 mg/dl (0.2-1) Aspartate Amino Transf (AST/SGOT) 219 U/L (15-37) Alanine Aminotransferase (ALT/SGPT) 169 U/L (12-78) Alkaline Phosphatase 120 U/L (45-117) Troponin I < 0.015 ng/ml (0-0.045) Total Protein 8.8 gm/dl (6.4-8.2) Albumin 3.9 gm/dl (3.4-5.0) Globulin 4.9 gm/dl (2.5-4.0) Albumin/Globulin Ratio 0.8 (0.9-2) Lipase 09626 U/L (73-393) Date/Time Source Procedure Growth Status 11/21/17 11:36 Urine , Clean Catch Urine Culture Pending Received Results Past 24 Hours Test 11/21/17 11:36 11/21/17 11:40 Range/Units Urine Color DK YELLOW Urine Appearance CLOUDY CLEAR Urine pH 5.0 4.5-7.5 Urine Specific [place] 1.013 1.000-1.030 Urine Protein NEG NEG Urine Glucose (UA) NEG NEG Urine Ketones NEG NEG Urine Occult Blood NEG NEG Urine Nitrite NEG NEG Urine Bilirubin 1+ NEG Urine Urobilinogen NEG NEG Urine Leukocyte Esterase SMALL NEG Urine WBC (Auto) 1-5 0-5 /hpf Urine RBC (Auto) 0-4 0-4 /hpf Urine Hyaline Casts (Auto) 1-5 0-5 /lpf Urine Epithelial Cells (Auto) >30 0-5 /lpf Urine Bacteria (Auto) 1+ NEG Urine Pathogenic Casts 0 /lpf Urine Test NEG NEG White Blood Count 18.93 4.8-10.8 K/uL Red Blood Count 4.73 4.2-5.4 M/uL Hemoglobin 15.1 12.0-16.0 g/dL Hematocrit 42.0 37-47 % Mean Corpuscular Volume 88.8 80-100 fL Mean Corpuscular Hemoglobin 31.9 25-34 pg Mean Corpuscular Hemoglobin Concent 36.0 32-36 g/dl Platelet Count 249 130-400 K/uL Mean Platelet Volume 9.0 7.4-10.4 fL Neutrophils (%) (Auto) 84.7 % Lymphocytes (%) (Auto) 8.8 % Monocytes (%) (Auto) 6.1 % Eosinophils (%) (Auto) 0.1 % Basophils (%) (Auto) 0.1 % Neutrophils # (Auto) 16.06 1.4-6.5 K/uL Lymphocytes # (Auto) 1.66 1.2-3.4 K/uL Monocytes # (Auto) 1.15 0.11-0.59 K/uL Eosinophils # (Auto) 0.02 0-0.5 K/uL Basophils # (Auto) 0.01 0-0.2 K/uL RDW Standard Deviation 40.5 36.4-46.3 fL RDW Coefficient of Variation 12.6 11.5-14.5 % Immature Granulocyte % (Auto) 0.2 % Immature Granulocyte # (Auto) 0.03 0.00-0.02 K/uL D-Dimer 1460 0-500 ug/L FEU Sodium Level 135 136-145 mmol/L Potassium Level 3.7 3.5-5.1 mmol/L Chloride Level 102 98-107 mmol/L Carbon Dioxide Level 25 21-32 mmol/L Anion Gap 9.0 3-11 mmol/L Blood Urea Nitrogen 5 7-18 mg/dl Creatinine 0.78 0.60-1.20 mg/dl Est Creatinine Clear Calc Drug Dose 140.6 ml/min Estimated GFR () 126.8 Estimated GFR (Non- 109.4 BUN/Creatinine Ratio 6.8 10-20 Random Glucose 104 70-99 mg/dl Calcium Level 9.8 8.5-10.1 mg/dl Total Bilirubin 2.0 0.2-1 mg/dl Aspartate Amino Transf (AST/SGOT) 219 15-37 U/L Alanine Aminotransferase (ALT/SGPT) 169 12-78 U/L Alkaline Phosphatase 120 45-117 U/L Troponin I < 0.015 0-0.045 ng/ml Total Protein 8.8 6.4-8.2 gm/dl Albumin 3.9 3.4-5.0 gm/dl Globulin 4.9 2.5-4.0 gm/dl Albumin/Globulin Ratio 0.8 0.9-2 Lipase 32345 73-393 U/L Microbiology Results 11/21/17 Urine Culture, Received Pending Diagnostic Radiology ULTRASOUND RIGHT UPPER QUADRANT ABDOMEN CLINICAL HISTORY: Epigastric abdominal pain. Pancreatitis. COMPARISON STUDY: Abdominal CT dated 11/21/2017. TECHNIQUE: Real-time, grayscale, and color flow sonography of the right upper quadrant of the abdomen was performed. Images are reviewed in the transverse and longitudinal planes. FINDINGS: Liver: The liver is normal in size and echotexture. There is no intrahepatic biliary ductal dilatation. The main portal vein is patent. Gallbladder: The gallbladder is surgically absent. The common bile duct measures up to 0.4 cm in diameter. No filling defects identified within the common duct by ultrasound. Pancreas: Visualized portions of the pancreatic head and body are normal in appearance. The splenic vein is patent. Right kidney: Survey images of the right kidney demonstrate normal size and echotexture. There is no hydronephrosis. Ascites: None. IMPRESSION: Unremarkable sonographic assessment of the right upper quadrant noting status post cholecystectomy. No intra or extrahepatic biliary ductal dilatation is identified. -------- CT SCAN OF THE ABDOMEN AND PELVIS WITH IV CONTRAST CLINICAL HISTORY: Epigastric abdominal pain. COMPARISON STUDY: Abdominal ultrasound dated 04/06/2017. TECHNIQUE: Following the IV administration of 94 cc of Optiray 320, CT scan of the abdomen and pelvis is performed from the lung bases to the proximal femora. Images are reviewed in the axial, sagittal, and coronal planes. IV contrast was administered without complication. A dose lowering technique was utilized adhering to the principles of ALARA. The examination is degraded by streak artifact from metallic orthopedic spinal hardware. FINDINGS: Lung bases: The heart is normal in size and without pericardial effusion. The lung bases are clear noting dependent atelectasis. Bilateral nipple piercings are noted. Liver: The contrast-enhanced liver is normal in size, contour, and attenuation. There is mild central intrahepatic biliary ductal dilatation. The hepatic veins and portal veins are patent. Gallbladder: Surgically absent noting clips in the gallbladder fossa. Spleen: Normal in size and attenuation. Pancreas: The pancreas appears mildly edematous. Peripancreatic stranding and fluid is identified. Fluid is also seen tracking inferiorly within the right retroperitoneal space. The appearance is consistent with acute pancreatitis. The gland enhances homogeneously. No organized peripancreatic fluid collection is identified. The splenic vein is patent. Adrenal glands: Unremarkable. Kidneys: The contrast enhanced kidneys are normal in size and without hydronephrosis. The kidneys enhance symmetrically. Abdominal vasculature: The abdominal aorta is normal in course and caliber. Bowel: The small bowel and colon are normal in course and caliber. The appendix is normal as visualized. Peritoneum: There is no intraperitoneal free air or abdominal ascites. Lymphadenopathy: None. Pelvic viscera: The bladder, uterus, and adnexa are normal as visualized. Small ovarian follicles are noted. Trace free fluid is identified in the cul-de-sac. Skeletal structures: No lytic or blastic lesions are seen. Fusion hardware is noted at the thoracolumbar junction. Mild thoracolumbar scoliosis is observed. Mild sclerotic change is noted in the sacroiliac joints. IMPRESSION: 1. Findings are consistent with acute pancreatitis. 2. The pancreas enhances homogeneously. The splenic vein is patent and no organized peripancreatic fluid collection is identified ------- CT ANGIOGRAPHY OF THE CHEST, PULMONARY EMBOLUS PROTOCOL CLINICAL HISTORY: Epigastric and back pain. Elevated d-dimer. COMPARISON STUDY: No previous studies for comparison. TECHNIQUE: Following IV administration of 94 mL of Optiray-320, helical axial images of the chest were obtained utilizing the pulmonary embolus protocol. Maximal intensity projections and sagittal and coronal reformats were viewed on an independent 3D workstation. IV contrast was administered without complication. A dose lowering technique was utilized adhering to the principles of ALARA. CT DOSE: 987.92 mGy.cm FINDINGS: No central or lobar pulmonary emboli are identified. The segmental and subsegmental pulmonary arteries are suboptimally assessed due to streak artifact from the scoliosis hardware as well as suboptimal vascular opacification. The size of the heart is normal. There is no thoracic aortic dissection. Central airways are patent. There is no consolidation. No pneumothorax or pleural effusion is noted. There is no consolidation to suggest pneumonia. Mild subpleural bilateral lower lobe opacities reflect atelectasis. IMPRESSION: 1. No central or lobar pulmonary emboli. Segmental and subsegmental pulmonary arteries suboptimally assessed due to streak artifact from the spinal hardware and suboptimal vascular opacification. 2. No acute intrathoracic findings. Normal EKG Impression Assessment and Plan 22-year-old female presents with acute pancreatitis. 1. Acute pancreatitis-etiologies include but not limited to oral contraceptive pills (suspect this most likely), possible gallstone or dilated common bile duct status post cholecystectomy, recent infection. The patient denies using alcohol. She reports mild fevers and chills but no symptoms consistent with mono and although she reports some cold symptoms and recent sick contacts she does not feel particularly infected at this time. Sinus infection was reported a couple weeks ago. She did however have her oral contraceptive pill dose increased 1 month ago right around the time the symptoms started to occur with epigastric tenderness and aversion to food. Symptoms got worse in the last few days, and this time course possibly explains the elevated lipase. She is currently hemodynamically stable and is not ill-appearing. Continue pain control, bowel rest with ice chips for comfort, IV hydration. CT scan revealed no abscess or other complication at this time. Follow clinical course of the next 24-48 hours. Holding OCPs at this time. 2. History of SVT-patient reports being on atenolol in the past but then came off of it as she did not want to take a pill every day. She reports no issues with SVT in the last couple of years. As a result of this history and severity of pancreatitis will put her on telemetry overnight. 3. PCOS-oral contraceptive pills being taken for this, menstrual cycles are regular. Patient denies any recent pelvic pain or breakthrough bleeding. 4. Elevated LFTs-likely a result of inflammation from pancreatitis. Trend in am. Not high enough to consider hepatitis and clinical picture is not consistent with this. DVT prophylaxis-Lovenox Full code Disposition-to telemetry. Likely hospitalized minimum of 2 days. Patient should be eating solid food prior to discharge. Nicole Ashraf DO [facility] Hospitalist Resuscitation Status VTE Prophylaxis Will order VTE Prophylaxis: Yes
[2017-11-21] MEDS: SODIUM CHLORIDE 0.9% 1000ML 1,000 ML IV SCH ×2 (17:03→21:55)
[2017-11-21 18:52] VITALS: BP 123/73; PULSE 79
[2017-11-21 19:40] VITALS: BP 123/79; PULSE 80; TEMP 36.6; O2SAT 98
[2017-11-21 20:00] VITALS: O2SAT 98
--- NOTE | 2017-11-21 21:09 | EMERGENCY ROOM VISIT NOTE ---
History First contact with patient: 11:56 Chief Complaint: ABDOMINAL PAIN Stated Complaint: ABDOMINAL PAIN INTO UPPER BACK Nursing Triage Summary: Patient reports "I am having mid abdominal pain for the past couple days. pain seems to be getting worse and going into back." denies urinary problems. reports having reg bowel movements. pt did have gallbladder removed in may. "The pain is in epigatric area of my belly and it goes around into my back, I tried taking TUMS at home but that didn't help." History of Present Illness The patient is a 22 year old female who presents to the Emergency Room with complaints of a two-week history of epigastric pain radiating into the back. The patient reports that the pain is becoming more constant and severe over the past few days. The patient reports undergoing gallbladder removal in March of last year by Dr. Hoskins. She has not had any problems since that time. The patient denies any history of peptic ulcer disease. She has a childhood history of GERD, but denies any problems over the past several years. She denies any urinary symptoms or prior history of kidney stones. She denies , vaginal discharge or recent heavy menstruation. Last menstruation was 3 weeks ago. She currently rates her discomfort a 9 out of 10, describing it as a sharp pain radiating from the stomach into the back. It does not radiate into the chest, shoulder or neck. She denies any chest tightness, shortness of breath or headache. The patient has had nausea without vomiting. Symptoms are not worsened with food intake. Review of Systems HEENT: Denies dizziness, visual problems, hearing loss, tinnitus. Denies difficulty swallowing or oral lesions. PULMONARY: Denies cough, shortness of breath, sputum production or hemoptysis. CARDIOVASCULAR: Denies chest pain, palpitations, dyspnea on exertion, orthopnea or peripheral edema. GASTROINTESTINAL: Denies diarrhea or constipation, otherwise see HPI. GENITOURINARY: Denies dysuria, frequency, urgency or nocturia. NEUROLOGIC: Denies history of epilepsy, CVA, TIA or chronic headaches. MUSCULOSKELETAL: Denies history of joint tenderness/swelling. SKIN: Denies rashes or lesions. PSYCHIATRIC: Denies history of depression or mental illness. ENDOCRINE: Denies history of diabetes or thyroid disorders. Past Medical/Surgical History Medical Problems: (1) Acute pancreatitis (2) Chronic cholecystitis with calculus (3) On oral contraceptive pills for non-contraception indication (4) PCOS (polycystic ovarian syndrome) (5) SVT (supraventricular tachycardia) Surgical Problems: (1) Previous back surgery (2) S/P harley (3) S/P tonsillectomy Family History FHx: heart disease Hypertension Social History Smoking Status: Never Smoker Alcohol Use: occasionally Marital Status: single Housing Status: lives with family Occupation Status: employed Current/Historical Medications Scheduled Norethindrone Acet & Eth Estra (), 1 TAB PO UD Tizanidine (Zanaflex), 2 MG PO TID/PRN Physical Exam Vital Signs Date Time Temp Pulse Resp B/P (MAP) Pulse Ox O2 Delivery O2 Flow Rate FiO2 11/21/17 14:30 76 16 139/76 100 Room Air 11/21/17 13:13 63 11/21/17 12:35 72 18 132/80 99 Room Air 11/21/17 11:07 36.7 66 18 124/78 98 Room Air Physical Exam CONSTITUTIONAL: Healthy and well nourished. Alert and oriented X 3 with positive affect. Patient appears in severe discomfort, and is crying. HEENT: Normocephalic, atraumatic. Pupils equal, round and reactive. Ears and nares are clear. No scleral icterus or conjunctival injection/pallor. NECK: Full active range of motion without discomfort. No JVD or carotid bruits. RESPIRATORY: Clear to auscultation bilaterally with no wheezing, crackles, rhonchi or stridor. CARDIOVASCULAR: Regular rate and rhythm with no murmurs, rubs or gallops. GASTROINTESTINAL: Bowel sounds present in all quadrants. Patient has notable firmness and palpation over the epigastric region. Mildly positive Hughes sign. Patient has no lower abdominal tenderness to palpation, rigidity, guarding or rebound. Negative McBurney's point tenderness. Negative CVA tenderness. MUSCULOSKELETAL: Full range of motion of all joints without discomfort. No tenderness to palpation through the ribs or costochondral joints. The patient also has no tenderness to palpation through the central thoracolumbar spine or paraspinous muscles. INTEGUMENTARY: No rash or other significant dermatologic conditions noted. HEMATOLOGIC: No ecchymosis or petechiae noted. NEUROLOGIC: No focal neurologic deficits noted. Medical Decision & Procedures ER Provider Diagnostic Interpretation: My interpretation of an ECG shows a normal sinus rhythm of [address] elevation or other conduction abnormalities. CT of the chest, abdomen and pelvis shows acute pancreas. Radiologist report is as follows: CT SCAN OF THE ABDOMEN AND PELVIS WITH IV CONTRAST CLINICAL HISTORY: Epigastric abdominal pain. COMPARISON STUDY: Abdominal ultrasound dated 04/06/2017. TECHNIQUE: Following the IV administration of 94 cc of Optiray 320, CT scan of the abdomen and pelvis is performed from the lung bases to the proximal femora. Images are reviewed in the axial, sagittal, and coronal planes. IV contrast was administered without complication. A dose lowering technique was utilized adhering to the principles of ALARA. The examination is degraded by streak artifact from metallic orthopedic spinal hardware. FINDINGS: Lung bases: The heart is normal in size and without pericardial effusion. The lung bases are clear noting dependent atelectasis. Bilateral nipple piercings are noted. Liver: The contrast-enhanced liver is normal in size, contour, and attenuation. There is mild central intrahepatic biliary ductal dilatation. The hepatic veins and portal veins are patent. Gallbladder: Surgically absent noting clips in the gallbladder fossa. Spleen: Normal in size and attenuation. Pancreas: The pancreas appears mildly edematous. Peripancreatic stranding and fluid is identified. Fluid is also seen tracking inferiorly within the right retroperitoneal space. The appearance is consistent with acute pancreatitis. The gland enhances homogeneously. No organized peripancreatic fluid collection is identified. The splenic vein is patent. Adrenal glands: Unremarkable. Kidneys: The contrast enhanced kidneys are normal in size and without hydronephrosis. The kidneys enhance symmetrically. Abdominal vasculature: The abdominal aorta is normal in course and caliber. Bowel: The small bowel and colon are normal in course and caliber. The appendix is normal as visualized. Peritoneum: There is no intraperitoneal free air or abdominal ascites. Lymphadenopathy: None. Pelvic viscera: The bladder, uterus, and adnexa are normal as visualized. Small ovarian follicles are noted. Trace free fluid is identified in the cul-de-sac. Skeletal structures: No lytic or blastic lesions are seen. Fusion hardware is noted at the thoracolumbar junction. Mild thoracolumbar scoliosis is observed. Mild sclerotic change is noted in the sacroiliac joints. IMPRESSION: 1. Findings are consistent with acute pancreatitis. 2. The pancreas enhances homogeneously. The splenic vein is patent and no organized peripancreatic fluid collection is identified. Chest CT angiography does not show any evidence for pulmonary emboli. Radiologist report is as follows: CT ANGIOGRAPHY OF THE CHEST, PULMONARY EMBOLUS PROTOCOL CLINICAL HISTORY: Epigastric and back pain. Elevated d-dimer. COMPARISON STUDY: No previous studies for comparison. TECHNIQUE: Following IV administration of 94 mL of Optiray-320, helical axial images of the chest were obtained utilizing the pulmonary embolus protocol. Maximal intensity projections and sagittal and coronal reformats were viewed on an independent 3D workstation. IV contrast was administered without complication. A dose lowering technique was utilized adhering to the principles of ALARA. CT DOSE: 987.92 mGy.cm FINDINGS: No central or lobar pulmonary emboli are identified. The segmental and subsegmental pulmonary arteries are suboptimally assessed due to streak artifact from the scoliosis hardware as well as suboptimal vascular opacification. The size of the heart is normal. There is no thoracic aortic dissection. Central airways are patent. There is no consolidation. No pneumothorax or pleural effusion is noted. There is no consolidation to suggest pneumonia. Mild subpleural bilateral lower lobe opacities reflect atelectasis. IMPRESSION: 1. No central or lobar pulmonary emboli. Segmental and subsegmental pulmonary arteries suboptimally assessed due to streak artifact from the spinal hardware and suboptimal vascular opacification. 2. No acute intrathoracic findings. Abdominal ultrasound does not show any acute findings, including common bile duct dilatation. Radiologist report is as follows: ULTRASOUND RIGHT UPPER QUADRANT ABDOMEN CLINICAL HISTORY: Epigastric abdominal pain. Pancreatitis. COMPARISON STUDY: Abdominal CT dated 11/21/2017. TECHNIQUE: Real-time, grayscale, and color flow sonography of the right upper quadrant of the abdomen was performed. Images are reviewed in the transverse and longitudinal planes. FINDINGS: Liver: The liver is normal in size and echotexture. There is no intrahepatic biliary ductal dilatation. The main portal vein is patent. Gallbladder: The gallbladder is surgically absent. The common bile duct measures up to 0.4 cm in diameter. No filling defects identified within the common duct by ultrasound. Pancreas: Visualized portions of the pancreatic head and body are normal in appearance. The splenic vein is patent. Right kidney: Survey images of the right kidney demonstrate normal size and echotexture. There is no hydronephrosis. Ascites: None. IMPRESSION: Unremarkable sonographic assessment of the right upper quadrant noting status post cholecystectomy. No intra or extrahepatic biliary ductal dilatation is identified. Laboratory Results 11/21/17 11:40 Red Blood Count 4.73, Mean Corpuscular Volume 88.8, Mean Corpuscular Hemoglobin 31.9, Mean Corpuscular Hemoglobin Concent 36.0, Mean Platelet Volume 9.0, Neutrophils (%) (Auto) 84.7, Lymphocytes (%) (Auto) 8.8, Monocytes (%) (Auto) 6.1, Eosinophils (%) (Auto) 0.1, Basophils (%) (Auto) 0.1, Neutrophils # (Auto) 16.06, Lymphocytes # (Auto) 1.66, Monocytes # (Auto) 1.15, Eosinophils # (Auto) 0.02, Basophils # (Auto) 0.01 11/21/17 11:40 Test 11/21/17 11:36 11/21/17 11:40 Urine Color DK YELLOW Urine Appearance CLOUDY (CLEAR) Urine pH 5.0 (4.5-7.5) Urine Specific [place] 1.013 (1.000-1.030) Urine Protein NEG (NEG) Urine Glucose (UA) NEG (NEG) Urine Ketones NEG (NEG) Urine Occult Blood NEG (NEG) Urine Nitrite NEG (NEG) Urine Bilirubin 1+ (NEG) Urine Urobilinogen NEG (NEG) Urine Leukocyte Esterase SMALL (NEG) Urine WBC (Auto) 1-5 /hpf (0-5) Urine RBC (Auto) 0-4 /hpf (0-4) Urine Hyaline Casts (Auto) 1-5 /lpf (0-5) Urine Epithelial Cells (Auto) >30 /lpf (0-5) Urine Bacteria (Auto) 1+ (NEG) Urine Pathogenic Casts /lpf (0) Urine Test NEG (NEG) White Blood Count 18.93 K/uL (4.8-10.8) Red Blood Count 4.73 M/uL (4.2-5.4) Hemoglobin 15.1 g/dL (12.0-16.0) Hematocrit 42.0 % (37-47) Mean Corpuscular Volume 88.8 fL (80-100) Mean Corpuscular Hemoglobin 31.9 pg (25-34) Mean Corpuscular Hemoglobin Concent 36.0 g/dl (32-36) Platelet Count 249 K/uL (130-400) Mean Platelet Volume 9.0 fL (7.4-10.4) Neutrophils (%) (Auto) 84.7 % Lymphocytes (%) (Auto) 8.8 % Monocytes (%) (Auto) 6.1 % Eosinophils (%) (Auto) 0.1 % Basophils (%) (Auto) 0.1 % Neutrophils # (Auto) 16.06 K/uL (1.4-6.5) Lymphocytes # (Auto) 1.66 K/uL (1.2-3.4) Monocytes # (Auto) 1.15 K/uL (0.11-0.59) Eosinophils # (Auto) 0.02 K/uL (0-0.5) Basophils # (Auto) 0.01 K/uL (0-0.2) RDW Standard Deviation 40.5 fL (36.4-46.3) RDW Coefficient of Variation 12.6 % (11.5-14.5) Immature Granulocyte % (Auto) 0.2 % Immature Granulocyte # (Auto) 0.03 K/uL (0.00-0.02) Prothrombin Time 10.1 SECONDS (9.0-12.0) Prothromb Time International Ratio 1.0 (0.9-1.1) D-Dimer 1460 ug/L FEU (0-500) Anion Gap 9.0 mmol/L (3-11) Est Creatinine Clear Calc Drug Dose 140.6 ml/min Estimated GFR () 126.8 Estimated GFR (Non- 109.4 BUN/Creatinine Ratio 6.8 (10-20) Calcium Level 9.8 mg/dl (8.5-10.1) Total Bilirubin 2.0 mg/dl (0.2-1) Aspartate Amino Transf (AST/SGOT) 219 U/L (15-37) Alanine Aminotransferase (ALT/SGPT) 169 U/L (12-78) Alkaline Phosphatase 120 U/L (45-117) Troponin I < 0.015 ng/ml (0-0.045) Total Protein 8.8 gm/dl (6.4-8.2) Albumin 3.9 gm/dl (3.4-5.0) Globulin 4.9 gm/dl (2.5-4.0) Albumin/Globulin Ratio 0.8 (0.9-2) Lipase 22217 U/L (73-393) The above labs were reviewed, showing markedly elevated liver transaminases, lipase, total bilirubin and alkaline phosphatase. Was also elevated, prompting chest CT angiography. Troponin was normal. Patient has a white count of almost 19,000 with left shift and bandemia. Urinalysis is unremarkable. Medications Administered Medications (Trade) Dose Ordered Sig/Miryam Route Start Time Stop Time Status Last Admin Dose Admin Sodium Chloride 1,000 ml @ 999 mls/hr Q1H1M STAT IV 11/21/17 12:01 11/21/17 13:01 DC 11/21/17 12:16 999 MLS/HR Hydromorphone HCl (Dilaudid Inj) 0.5 mg NOW STAT IV 11/21/17 12:01 11/21/17 12:04 DC 11/21/17 12:16 0.5 MG Ondansetron HCl (Zofran Inj) 4 mg NOW STAT IV 11/21/17 12:01 11/21/17 12:04 DC 11/21/17 12:16 4 MG Famotidine (Pepcid 20mg Iv Push) 20 mg ONE STAT IV 11/21/17 12:01 11/21/17 12:04 DC 11/21/17 12:16 20 MG Lidocaine HCl (Viscous Lidocaine 2% Soln) 10 ml NOW STAT PO 11/21/17 12:01 11/21/17 12:04 DC 11/21/17 12:16 10 ML Al Hydroxide/Mg Hydroxide (Maalox Susp) 30 ml NOW STAT PO 11/21/17 12:01 11/21/17 12:04 DC 11/21/17 12:16 30 ML Hydromorphone HCl (Dilaudid Inj) 0.5 mg Q30M PRN IV 11/21/17 12:15 11/21/17 15:59 DC 11/21/17 15:47 0.5 MG Hydromorphone HCl (Dilaudid Inj) 0.5 mg NOW STAT IV 11/21/17 12:30 11/21/17 12:32 DC 11/21/17 12:35 0.5 MG Sodium Chloride 1,000 ml @ 200 mls/hr Q5H STAT IV 11/21/17 13:58 11/21/17 16:29 DC 11/21/17 14:13 200 MLS/HR ED Course Patient history and physical exam were performed. Nurse's notes were reviewed. Vital signs were reviewed and were normal. The patient is not tachycardic or hypotensive. O2 saturation is 98% on room air. Patient was in severe discomfort. IV access was established, and labs were drawn. Nursing protocol. I placed additional orders as well. The patient was administered IV Dilaudid and Zofran for pain, which did not help much with the pain. Within 15 minutes, she was administered an additional dose of IV Dilaudid. An ECG was performed and was normal. I was contacted that the patient's d-dimer was elevated, therefore CT of the chest, abdomen and pelvis were ordered, showing no evidence for pulmonary emboli. CT scan does show evidence for acute pancreatitis. Labs were reviewed to show a markedly elevated lipase, LFTs, total bilirubin and transaminase. She also has a marked leukocytosis with left shift and bandemia. The patient did report request an additional dose of pain medicine, and was administered additional Dilaudid IVP. Case was further discussed with Dr. Snyder, ED attending physician, who recommended hospitalist consultation. The case was discussed with the [facility] hospitalist group. Please see the dictation for further treatment and final disposition. Medical Decision Workup today is highly suggestive of acute pancreatitis. The patient does have markedly elevated liver transaminases, alkaline phosphatase and total bilirubin. Ultrasound does not show any obvious common bile duct dilatation or stone. Although d-dimer is elevated, CT does not show any evidence for central pulmonary emboli. ECG and troponin were also normal. CT scan does not show any other acute intra-abdominal surgical etiologies. I do not suspect abdominal infection. Medication Reconcilliation Current Medication List: was personally reviewed by me Blood Pressure Screening Patient's blood pressure: Normal blood pressure Impression Primary Impression: Pancreatitis Departure Information Referrals Dima Rose M.D. (PCP) Patient Instructions [facility] Problem Qualifiers Primary Impression: Pancreatitis Chronicity: acute Pancreatitis type: unspecified pancreatitis type Acute pancreatitis complication: unspecified Qualified Codes: K85.90 - Acute pancreatitis without necrosis or infection, unspecified
[2017-11-21 23:07] VITALS: BP 110/62; PULSE 88; TEMP 38; O2SAT 97
[2017-11-22] VITALS (9 sets, daily range): BP systolic 107–136; BP diastolic 58–77; PULSE 56–108; TEMP 36.7–37.3; O2SAT 94–100
[2017-11-22] MEDS: SODIUM CHLORIDE 0.9% 1000ML 1,000 ML IV SCH ×4 (02:52→21:02)
[2017-11-22 07:37] LABS: BASO % 0.1 %; BASO ABS # 0.01 K/uL (0-0.2); EOS % 0.4 %; EOS ABS # 0.05 K/uL (0-0.5); HEMATOCRIT 35.9 % (37-47); HEMOGLOBIN 12.6 g/dL (12.0-16.0); IG# 0.01 K/uL (0.00-0.02); LYMPH % 17.1 %; LYMPH ABS # 1.97 K/uL (1.2-3.4); MEAN CELL VOLUME 89.1 fL (80-100); MEAN CORPUSCULAR HEMOGLOBIN 31.3 pg (25-34); MEAN CORPUSCULAR HGB CONC 35.1 g/dl (32-36); MEAN PLATELET VOLUME 8.7 fL (7.4-10.4); MONO % 7.1 %; MONO ABS # 0.82 K/uL (0.11-0.59); NEUT % 75.2 %; NEUT ABS # 8.66 K/uL (1.4-6.5); PLATELET COUNT 180 K/uL (130-400); RED CELL DISTRIBUTION WIDTH CV 12.7 % (11.5-14.5); RED CELL DISTRIBUTION WIDTH SD 40.8 fL (36.4-46.3); WHITE BLOOD COUNT 11.52 K/uL (4.8-10.8)
[2017-11-22 08:08] LABS: ALBUMIN 2.8 gm/dl (3.4-5.0); CALCIUM 8.2 mg/dl (8.5-10.1); CREATININE 0.67 mg/dl (0.60-1.20); POTASSIUM 3.6 mmol/L (3.5-5.1)
[2017-11-22 08:15] LABS: TOTAL PROTEIN 6.5 gm/dl (6.4-8.2)
[2017-11-22] MEDS: ACETAMINOPHEN IV 650 MG in EMPTY BAG 0 ML IV PRN (08:19)
[2017-11-22] MEDS: ENOXAPARIN 40 MG/0.4 ML SYR SQ SCH (08:21)
--- NOTE | 2017-11-22 08:27 | Clinical Documentation Query ---
CLINICAL DOCUMENTATION QUERY 22 year old female who presents acute pancreatitis. She is leukocytotic and has spiked a fever. In your clinical opinion is this patient being managed for: ( ) SIRS of non-infectious origin in setting of pancreatitis. ( ) Not Agree ( ) Other explanation of clinical findings (Please Explain) (x ) Unable to determine (Please Define) ( ) Need to Discuss The medical record reflects the following clinical findings, treatment, and risk factors. Clinical Indicators: Tmax 38.0, HR 108, BP 107/58, WBC's 19.93 Treatment: IVF's with bolus, PRN IV APAP, Risk Factors: Pancreatitis. Please clarify and document your clinical opinion in the progress notes and discharge summary. Terms such as "probable", "suspected", "likely", "questionable", "possible", or "still to be ruled out" are acceptable. IF IN AGREEMENT, YOU MUST DOCUMENT ABOVE DIAGNOSTIC STATEMENT IN DAILY PROGRESS NOTES AND DISCHARGE SUMMARY. This document is not part of the patient's record. Thank You, Bao Ramos, MARZENA [phone]
--- NOTE | 2017-11-22 11:16 | Gastrointestinal Consultation ---
Gastrointestinal Consultation Date of Consultation: Nov 22, 2017 Attending Physician: Dulce Consulting Physician: Jay Reason for Consultation: acute panc, elevated LFTs History of Present Illness Patient is a 22 year old female admitted through the ED for abdominal pain, nausea, fever. GI consulted for elevated LFTs, pancreatitis. Pt was seen and evaluated, chart reviewed. Pt notes she had her GB out a few months ago w/ gallstones. Has had intermittent right sided abdominal pain from time to time. Acutely worsened. Pain 10/10. Sharp stabbing constant w/ sensation of fullness. Mild nausea, no vomiting. No change in bowels. Report of fever, chills. She did have a low grade fever last night. On arrival, elevated d-dimer w/ leukocytosis concerning for sepsis. TB 2 --> 4.9 AST 219 --> 80 ALT 169 --> 110 ALKP 120 --> 105 ABD US 11/21/17: The liver is normal in size and echotexture. There is no intrahepatic biliary ductal dilatation. The main portal vein is patent. Gallbladder: The gallbladder is surgically absent. The common bile duct measures up to 0.4 cm in diameter. No filling defects identified within the common duct by ultrasound. CT ABD/Pelvis 11/21/17: The contrast-enhanced liver is normal in size, contour, and attenuation.There is mild central intrahepatic biliary ductal dilatation. The hepatic veins and portal veins are patent. Gallbladder: Surgically absent noting clips in the gallbladder fossa. Spleen: Normal in size and attenuation. Pancreas: The pancreas appears mildly edematous. Peripancreatic stranding and fluid is identified. Fluid is also seen tracking inferiorly within the right retroperitoneal space. The appearance is consistent with acute pancreatitis. The gland enhances homogeneously. No organized peripancreatic fluid collection is identified. The splenic vein is patent. CTA 11/21/17: No central or lobar pulmonary emboli. Segmental and subsegmental pulmonary arteries suboptimally assessed due to streak artifact from the spinal hardware and suboptimal vascular opacification. No acute intrathoracic findings. Past Medical/Surgical History Medical Problems: (1) Biliary colic Status: Acute (2) Fever Status: Acute (3) Pancreatitis Status: Acute (4) Tachycardia Status: Acute Past Medical History: biliary colic, chronic cholecystitis, gallstones, PCOS, SVT Past Surgical History: lap harley tonsillectomy Family History FHx: heart disease Hypertension Social History Smoking Status: Never Smoker Alcohol Use: occasionally Drug Use: none Marital Status: single Housing Status: lives with family Occupation Status: employed Allergies Coded Allergies: No Known Allergies (Unverified , 11/21/17) Current Medications Home Meds and Scripts Medications Dose Route/Sig Max Daily Dose Days Date Category (Norethindrone Acet & Eth Estra) 1 Tab Tab 1 Tab PO UD 11/21/17 Reported Zanaflex (Tizanidine HCl) 2 Mg Cap 2 Mg PO TID/PRN 04/06/17 Reported Review of Systems Constitutional: + fever, + chills Respiratory: No cough, No shortness of breath Cardiac: No chest pain, No edema Abdomen: + pain, + nausea, No vomiting, No diarrhea, No constipation, No GI bleeding Endo: No fatigue Skin: No rash, No itch Physical Exam Date Time Temp Pulse Resp B/P (MAP) Pulse Ox O2 Delivery O2 Flow Rate FiO2 11/22/17 06:54 36.9 108 18 123/77 (92) 94 Room Air 11/22/17 04:00 Room Air 11/22/17 03:28 37.2 76 20 107/58 (74) 97 Room Air 11/22/17 00:17 37.3 11/22/17 00:00 Room Air 11/21/17 23:07 38.0 88 18 110/62 (78) 97 Room Air 11/21/17 20:00 98 Room Air 11/21/17 19:40 36.6 80 18 123/79 (94) 98 Room Air 11/21/17 18:52 79 123/73 (90) 11/21/17 16:50 36.8 73 18 109/68 (82) 96 Room Air 11/21/17 16:50 36.8 73 18 109/68 98 Room Air 11/21/17 15:46 71 16 120/73 98 Room Air 11/21/17 14:30 76 16 139/76 100 Room Air 11/21/17 13:13 63 11/21/17 12:35 72 18 132/80 99 Room Air General Appearance: no apparent distress Eyes: PERRL ENT: hearing grossly normal Neck: supple, trachea midline Respiratory/Chest: lungs clear, normal breath sounds Cardiovascular: regular rate, rhythm, no gallop, no JVD, no murmur Abdomen: normal bowel sounds, soft, no organomegaly, no pulsatile mass, + tenderness (epigastric and RUQ tenderness) Neurologic/Psych: alert, normal mood/affect, oriented x 3 Skin: normal color, warm/dry Laboratory Results Last 24 Hours Test 11/21/17 11:36 11/21/17 11:40 11/22/17 07:15 Urine Color DK YELLOW Urine Appearance CLOUDY Urine pH 5.0 Urine Specific [place] 1.013 Urine Protein NEG Urine Glucose (UA) NEG Urine Ketones NEG Urine Occult Blood NEG Urine Nitrite NEG Urine Bilirubin 1+ Urine Urobilinogen NEG Urine Leukocyte Esterase SMALL Urine WBC (Auto) 1-5 /hpf Urine RBC (Auto) 0-4 /hpf Urine Hyaline Casts (Auto) 1-5 /lpf Urine Epithelial Cells (Auto) >30 /lpf Urine Bacteria (Auto) 1+ Urine Pathogenic Casts /lpf Urine Test NEG White Blood Count 18.93 K/uL 11.52 K/uL Red Blood Count 4.73 M/uL 4.03 M/uL Hemoglobin 15.1 g/dL 12.6 g/dL Hematocrit 42.0 % 35.9 % Mean Corpuscular Volume 88.8 fL 89.1 fL Mean Corpuscular Hemoglobin 31.9 pg 31.3 pg Mean Corpuscular Hemoglobin Concent 36.0 g/dl 35.1 g/dl Platelet Count 249 K/uL 180 K/uL Mean Platelet Volume 9.0 fL 8.7 fL Neutrophils (%) (Auto) 84.7 % 75.2 % Lymphocytes (%) (Auto) 8.8 % 17.1 % Monocytes (%) (Auto) 6.1 % 7.1 % Eosinophils (%) (Auto) 0.1 % 0.4 % Basophils (%) (Auto) 0.1 % 0.1 % Neutrophils # (Auto) 16.06 K/uL 8.66 K/uL Lymphocytes # (Auto) 1.66 K/uL 1.97 K/uL Monocytes # (Auto) 1.15 K/uL 0.82 K/uL Eosinophils # (Auto) 0.02 K/uL 0.05 K/uL Basophils # (Auto) 0.01 K/uL 0.01 K/uL RDW Standard Deviation 40.5 fL 40.8 fL RDW Coefficient of Variation 12.6 % 12.7 % Immature Granulocyte % (Auto) 0.2 % 0.1 % Immature Granulocyte # (Auto) 0.03 K/uL 0.01 K/uL Prothrombin Time 10.1 SECONDS Prothromb Time International Ratio 1.0 D-Dimer 1460 ug/L FEU Sodium Level 135 mmol/L 135 mmol/L Potassium Level 3.7 mmol/L 3.6 mmol/L Chloride Level 102 mmol/L 105 mmol/L Carbon Dioxide Level 25 mmol/L 23 mmol/L Anion Gap 9.0 mmol/L 7.0 mmol/L Blood Urea Nitrogen 5 mg/dl 5 mg/dl Creatinine 0.78 mg/dl 0.67 mg/dl Est Creatinine Clear Calc Drug Dose 140.6 ml/min 164.3 ml/min Estimated GFR () 126.8 146.7 Estimated GFR (Non- 109.4 126.5 BUN/Creatinine Ratio 6.8 7.8 Random Glucose 104 mg/dl 72 mg/dl Calcium Level 9.8 mg/dl 8.2 mg/dl Total Bilirubin 2.0 mg/dl 4.9 mg/dl Aspartate Amino Transf (AST/SGOT) 219 U/L 80 U/L Alanine Aminotransferase (ALT/SGPT) 169 U/L 110 U/L Alkaline Phosphatase 120 U/L 105 U/L Troponin I < 0.015 ng/ml Total Protein 8.8 gm/dl 6.5 gm/dl Albumin 3.9 gm/dl 2.8 gm/dl Globulin 4.9 gm/dl 3.7 gm/dl Albumin/Globulin Ratio 0.8 0.8 Lipase 93910 U/L 3257 U/L Impression Patient is a 22 year old female admitted with RUQ and epigastric pain, elevated lipase, LFTs, d-dimer and leukocytosis of 18. Imaging suggestive of pancreatitis , biliary system unremarkable. Leukocytosis improving overnight, but pt did have a low grade temp last evening. This AM TB increased. Concerned for cholangitis/retained CBD stone. Plan - Treat the pancreatitis - NPO for bowel rest - LR 200 ml/hr - antiemetics PRN - analgesia prn - Elevated LFTs - suspect cholangitis - start abx - cipro/flagyl - MRCP if safe given pt's back hardware - LFTs in AM - if LFTs elevated in AM, abd pain, fever, return will plan for ERCP 11/23/17 or 11/24/17 - Will discuss with attending and ERCP coverage physician. Please call with any acute changes, questions or concerns. I performed a history and physical examination of the patient. I have discussed the patient's case, impression and plan with PHYLICIA Llamas. Her note reflects my findings and plan. Given hx of [email or web address] 6 months ago with"lots of stones" makes gall stone pancreatitis likely. Bili increasing but symptoms slowly improving. WBC better but had low grade fever last pm. Will get MRCP if safe given fusion history. Will hold on ERCP for now but will follow closely. Discussed with family present at bedside. Lawrence Thompson MD
[2017-11-22] MEDS: METRONIDAZOLE / NSS 500 MG in PREMIXED NSS 100 ML IV SCH ×2 (13:20→21:02)
[2017-11-22] MEDS: CIPROFLOXACIN / D5W 400 MG in PREMIXED IN D5W 200 ML IV SCH (13:20)
--- NOTE | 2017-11-22 17:24 | Progress Note ---
Internal Med Progress Note Date of Service: Nov 22, 2017. Provider Documentation: SUBJECTIVE: no fever spikes today abdominal pain and nausea improved afebrile no chest pain or sob resting comfortably family in room OBJECTIVE: Vital Signs-as noted below Exam: General-alert and oriented. Not in distress ENT-normal hearing. Neck-No neck masses Lungs-CTA b/l no wheezing or crackles Heart-S1 and S2 heard irregular rhythm no murmurs Abdomen-soft Bowels sounds present mild epigastric tenderness present no distension Extremities-no edema no erythema Neuro-alert and oriented moves extremities Lab data as noted below. ASSESSMENT & PLAN: 22-year-old female presents with acute pancreatitis and possibly acute cholangitis. 1. Acute pancreatitis-etiologies include but not limited to oral contraceptive pills (suspect this most likely),possibly CBD stone or sludge. Holding ocp pills Ct abd/pelvis consistent acute pancreatitis US- shows no intra or extra hepatic biliary duct dilatation await mrcp npo, aggressive fluids iv pain meds and antiemetic prn contnue to monitor GI on board. Acute cholangitis? fever, leukocytosis elevated lft's f/u mrcp f/u labs started on iv cipro and flagyl plan for ercp as per GI . History of SVT-patient reports being on atenolol in the past but then came off of it as she did not want to take a pill every day as per H and P.and no issues with SVT in the last couple of years. monitor in tele. PCOS-oral contraceptive pills being taken for this, menstrual cycles are regular. Patient denies any recent pelvic pain or breakthrough bleeding.Patient likes to go back on opills if possible. DVT PROPHYLAXIS lovenox- refused scds DISPOSITION to be determined Vital Signs: Date Time Temp Pulse Resp B/P (MAP) Pulse Ox O2 Delivery O2 Flow Rate FiO2 11/22/17 15:50 36.8 56 18 113/66 (82) 100 Room Air 11/22/17 11:38 36.8 73 16 115/70 (85) 97 Room Air 11/22/17 06:54 36.9 108 18 123/77 (92) 94 Room Air 11/22/17 04:00 Room Air 11/22/17 03:28 37.2 76 20 107/58 (74) 97 Room Air 11/22/17 00:17 37.3 11/22/17 00:00 Room Air 11/21/17 23:07 38.0 88 18 110/62 (78) 97 Room Air 11/21/17 20:00 98 Room Air 11/21/17 19:40 36.6 80 18 123/79 (94) 98 Room Air 11/21/17 18:52 79 123/73 (90) Lab Results: Results Past 24 Hours Test 11/22/17 07:15 Range/Units White Blood Count 11.52 4.8-10.8 K/uL Red Blood Count 4.03 4.2-5.4 M/uL Hemoglobin 12.6 12.0-16.0 g/dL Hematocrit 35.9 37-47 % Mean Corpuscular Volume 89.1 80-100 fL Mean Corpuscular Hemoglobin 31.3 25-34 pg Mean Corpuscular Hemoglobin Concent 35.1 32-36 g/dl Platelet Count 180 130-400 K/uL Mean Platelet Volume 8.7 7.4-10.4 fL Neutrophils (%) (Auto) 75.2 % Lymphocytes (%) (Auto) 17.1 % Monocytes (%) (Auto) 7.1 % Eosinophils (%) (Auto) 0.4 % Basophils (%) (Auto) 0.1 % Neutrophils # (Auto) 8.66 1.4-6.5 K/uL Lymphocytes # (Auto) 1.97 1.2-3.4 K/uL Monocytes # (Auto) 0.82 0.11-0.59 K/uL Eosinophils # (Auto) 0.05 0-0.5 K/uL Basophils # (Auto) 0.01 0-0.2 K/uL RDW Standard Deviation 40.8 36.4-46.3 fL RDW Coefficient of Variation 12.7 11.5-14.5 % Immature Granulocyte % (Auto) 0.1 % Immature Granulocyte # (Auto) 0.01 0.00-0.02 K/uL Sodium Level 135 136-145 mmol/L Potassium Level 3.6 3.5-5.1 mmol/L Chloride Level 105 98-107 mmol/L Carbon Dioxide Level 23 21-32 mmol/L Anion Gap 7.0 3-11 mmol/L Blood Urea Nitrogen 5 7-18 mg/dl Creatinine 0.67 0.60-1.20 mg/dl Est Creatinine Clear Calc Drug Dose 164.3 ml/min Estimated GFR () 146.7 Estimated GFR (Non- 126.5 BUN/Creatinine Ratio 7.8 10-20 Random Glucose 72 70-99 mg/dl Calcium Level 8.2 8.5-10.1 mg/dl Total Bilirubin 4.9 0.2-1 mg/dl Aspartate Amino Transf (AST/SGOT) 80 15-37 U/L Alanine Aminotransferase (ALT/SGPT) 110 12-78 U/L Alkaline Phosphatase 105 45-117 U/L Total Protein 6.5 6.4-8.2 gm/dl Albumin 2.8 3.4-5.0 gm/dl Globulin 3.7 2.5-4.0 gm/dl Albumin/Globulin Ratio 0.8 0.9-2 Lipase 3257 73-393 U/L
--- NOTE | 2017-11-22 17:38 | DIAGNOSTIC IMAGING REPORT ---
MRCP CLINICAL HISTORY: Acute pancreatitis. Elevated liver function tests. COMPARISON STUDY: CT of the abdomen and pelvis and right upper quadrant ultrasound November 21, 2017. TECHNIQUE: Utilizing a 1.5 Kristyn magnet and dedicated coil, multiplanar, multiecho imaging of the upper abdomen was performed utilizing heavily T2 weighted pulsing sequences. No intravenous contrast was administered. FINDINGS: This exam is significantly compromised by susceptibility artifact from the scoliosis hardware within the spine. This particularly affects the FIESTA sequences. Evaluation of the mid to distal common bile duct is diagnostic on the 3D MRCP sequences and no mid to distal common bile duct calculi are identified. There is no biliary ductal dilatation status post cholecystectomy. The confluence of the right and left hepatic ducts, the common hepatic duct and the proximal common bile duct are entirely obscured by susceptibility artifact. There is no upstream dilatation. Peripancreatic fluid extending into the anterior pararenal spaces indicates acute pancreatitis. No hepatic lesions are identified also sensitivity is diminished on this unenhanced exam, particularly given artifact. IMPRESSION: 1. Exam compromised given susceptibility artifact from the scoliosis hardware. However, no biliary ductal dilatation status post cholecystectomy. No mid to distal common bile duct calculi. This portion of the common bile duct is well evaluated on this exam. [place] of the right and left hepatic ducts, common hepatic duct and proximal common bile duct entirely obscured by susceptibility artifact but no upstream dilatation. 2. Peripancreatic fluid extending into the anterior pararenal spaces indicative of acute pancreatitis. Electronically signed by: Edward Mason M.D. 11/22/2017 5:37 PM Dictated Date/Time: 11/22/2017 5:28 PM
[2017-11-22] MEDS ORDERED: NURSING VERBAL MED ORDER ONE (21:15)
[2017-11-23] VITALS (9 sets, daily range): BP systolic 89–138; BP diastolic 56–87; PULSE 57–80; TEMP 36.5–36.9; O2SAT 97–99
[2017-11-23] MEDS: CIPROFLOXACIN / D5W 400 MG in PREMIXED IN D5W 200 ML IV SCH ×2 (01:59→13:46)
[2017-11-23] MEDS: SODIUM CHLORIDE 0.9% 1000ML 1,000 ML IV SCH ×2 (01:59→07:06)
[2017-11-23] MEDS: ACETAMINOPHEN IV 650 MG in EMPTY BAG 0 ML IV PRN (04:14)
[2017-11-23] MEDS: METRONIDAZOLE / NSS 500 MG in PREMIXED NSS 100 ML IV SCH ×2 (04:36→13:00)
[2017-11-23 07:42] LABS: ALBUMIN 2.5 gm/dl (3.4-5.0); TOTAL PROTEIN 6.1 gm/dl (6.4-8.2)
[2017-11-23] MEDS: ENOXAPARIN 40 MG/0.4 ML SYR SQ SCH (08:01)
[2017-11-23 08:11] LABS: BASO % 0.1 %; BASO ABS # 0.01 K/uL (0-0.2); EOS % 1.8 %; EOS ABS # 0.14 K/uL (0-0.5); HEMATOCRIT 33.4 % (37-47); HEMOGLOBIN 11.5 g/dL (12.0-16.0); IG# 0.02 K/uL (0.00-0.02); LYMPH % 24.2 %; LYMPH ABS # 1.93 K/uL (1.2-3.4); MEAN CELL VOLUME 89.5 fL (80-100); MEAN CORPUSCULAR HEMOGLOBIN 30.8 pg (25-34); MEAN CORPUSCULAR HGB CONC 34.4 g/dl (32-36); MEAN PLATELET VOLUME 8.6 fL (7.4-10.4); MONO % 8.7 %; MONO ABS # 0.69 K/uL (0.11-0.59); NEUT % 64.9 %; NEUT ABS # 5.17 K/uL (1.4-6.5); PLATELET COUNT 163 K/uL (130-400); RED CELL DISTRIBUTION WIDTH SD 42.1 fL (36.4-46.3); WHITE BLOOD COUNT 7.96 K/uL (4.8-10.8)
[2017-11-23 08:16] LABS: BLOOD UREA NITROGEN 3 mg/dl (7-18); CALCIUM 7.8 mg/dl (8.5-10.1); CARBON DIOXIDE 23 mmol/L (21-32); CREATININE 0.51 mg/dl (0.60-1.20); GLUCOSE 86 mg/dl (70-99); POTASSIUM 3.9 mmol/L (3.5-5.1); SODIUM 139 mmol/L (136-145)
--- NOTE | 2017-11-23 10:19 | Gastroenterology Progress Note ---
Progress Note Date of Service: Nov 23, 2017 Subjective Pt evaluation today including: conversation w/ patient, conversation w/ family , physical exam, chart review, lab review Pt was seen and evaluated, chart reviewed. No acute events noted over night. Family at bedside, mother on phone. Pt notes feeling well. She was started on IV ABX for suspected cholangitis, plan for ERCP. MRCP yesterday without evidence of CBD stone and this AM her liver function tests have nearly normalized. She has very mild epigastric discomfort now, worse with palpation. No nausea, vomiting. No fever, chills, CP, SOB. She had a BM this AM which was normal. No black or bloody stools. TB 2 --> 4.9 --> 0.9 AST 219 --> 80 --> 43 ALT 169 --> 110 --> 80 ALKP 120 --> 105 --> 98 MRCP 11/22/17: Exam compromised given susceptibility artifact from the scoliosis hardware. However, no biliary ductal dilatation status post cholecystectomy. No mid to distal common bile duct calculi. This portion of the common bile duct is well evaluated on this exam. [place] of the right and left hepatic ducts, common hepatic duct and proximal common bile duct entirely obscured by susceptibility artifact but no upstream dilatation. Peripancreatic fluid extending into the anterior pararenal spaces indicative of acute pancreatitis. ABD US 11/21/17: The liver is normal in size and echotexture. There is no intrahepatic biliary ductal dilatation. The main portal vein is patent. Gallbladder: The gallbladder is surgically absent. The common bile duct measures up to 0.4 cm in diameter. No filling defects identified within the common duct by ultrasound. CT ABD/Pelvis 11/21/17: The contrast-enhanced liver is normal in size, contour, and attenuation.There is mild central intrahepatic biliary ductal dilatation. The hepatic veins and portal veins are patent. Gallbladder: Surgically absent noting clips in the gallbladder fossa. Spleen: Normal in size and attenuation. Pancreas: The pancreas appears mildly edematous. Peripancreatic stranding and fluid is identified. Fluid is also seen tracking inferiorly within the right retroperitoneal space. The appearance is consistent with acute pancreatitis. The gland enhances homogeneously. No organized peripancreatic fluid collection is identified. The splenic vein is patent. CTA 11/21/17: No central or lobar pulmonary emboli. Segmental and subsegmental pulmonary arteries suboptimally assessed due to streak artifact from the spinal hardware and suboptimal vascular opacification. No acute intrathoracic findings. Review of Systems Constitutional: No fever, No chills Respiratory: No cough, No shortness of breath Cardiac: No chest pain, No edema Abdomen: No pain, No nausea, No vomiting, No diarrhea, No constipation, No GI bleeding Skin: No rash, No itch, No jaundice Medications Current Inpatient Medications Medications (Trade) Dose Ordered Sig/Miryam Route Start Time Stop Time Status Last Admin Dose Admin Ioversol (Optiray 320) 100 ml UD PRN IV 11/21/17 12:45 11/25/17 12:44 Sodium Chloride 1,000 ml @ 200 mls/hr Q5H IV 11/21/17 16:30 12/21/17 16:29 11/23/17 07:06 200 MLS/HR Ondansetron HCl (Zofran Inj) 4 mg Q6H PRN IV 11/21/17 15:00 12/21/17 14:59 Hydromorphone HCl (Dilaudid Inj) 0.5 mg Q1H PRN IV 11/21/17 15:15 12/05/17 15:14 11/21/17 23:06 0.5 MG Acetaminophen 650 mg/Empty Bag 65 ml @ 260 mls/hr Q6H PRN IV 11/21/17 15:15 12/21/17 15:14 11/23/17 04:14 260 MLS/HR Enoxaparin Sodium (Lovenox Inj) 40 mg QAM SQ 11/22/17 09:00 12/22/17 08:59 Ciprofloxacin/ Dextrose 400 mg/ Prmx 200 ml @ 100 mls/hr Q12H IV 11/22/17 14:00 12/02/17 13:59 11/23/17 01:59 100 MLS/HR Metronidazole 500 mg/Prmx 100 ml @ 100 mls/hr Q8H IV 11/22/17 13:00 12/02/17 11:59 11/23/17 04:36 100 MLS/HR Objective Vital Signs Date Time Temp Pulse Resp B/P (MAP) Pulse Ox O2 Delivery O2 Flow Rate FiO2 11/23/17 06:55 36.5 60 18 136/87 (103) 98 Room Air 11/23/17 04:00 Room Air 11/23/17 03:52 36.9 80 18 122/73 (89) 97 Room Air 11/23/17 00:01 36.8 66 18 127/78 (94) 98 Room Air 11/23/17 00:00 Room Air 11/22/17 20:00 36.7 69 16 136/65 (88) 98 Room Air 11/22/17 20:00 98 Room Air 11/22/17 16:09 94 Room Air 11/22/17 15:50 36.8 56 18 113/66 (82) 100 Room Air 11/22/17 12:06 94 Room Air 11/22/17 11:38 36.8 73 16 115/70 (85) 97 Room Air Physical Exam General Appearance: no apparent distress Eyes: PERRL ENT: hearing grossly normal Neck: supple, trachea midline Respiratory/Chest: lungs clear, normal breath sounds, no respiratory distress, no accessory muscle use Cardiovascular: regular rate, rhythm, no gallop, no JVD, no murmur Abdomen: normal bowel sounds, soft, no organomegaly, no pulsatile mass, + tenderness (mild upper abd tenderness with plalpation, no rebound or guarding) Neurologic/Psych: alert, normal mood/affect, oriented x 3 Skin: normal color, no jaundice, warm/dry, no rash Laboratory Results Last 24 Hours Test 11/23/17 06:37 11/23/17 06:40 Sodium Level 139 mmol/L Potassium Level 3.9 mmol/L Chloride Level 111 mmol/L Carbon Dioxide Level 23 mmol/L Anion Gap 5.0 mmol/L Blood Urea Nitrogen 3 mg/dl Creatinine 0.51 mg/dl Est Creatinine Clear Calc Drug Dose 217.4 ml/min Estimated GFR () > 150.0 Estimated GFR (Non- 138.4 BUN/Creatinine Ratio 6.3 Random Glucose 86 mg/dl Calcium Level 7.8 mg/dl Magnesium Level 2.1 mg/dl Total Bilirubin 0.9 mg/dl Direct Bilirubin 0.5 mg/dl Aspartate Amino Transf (AST/SGOT) 43 U/L Alanine Aminotransferase (ALT/SGPT) 80 U/L Alkaline Phosphatase 98 U/L Total Protein 6.1 gm/dl Albumin 2.5 gm/dl Lipase 1215 U/L White Blood Count 7.96 K/uL Red Blood Count 3.73 M/uL Hemoglobin 11.5 g/dL Hematocrit 33.4 % Mean Corpuscular Volume 89.5 fL Mean Corpuscular Hemoglobin 30.8 pg Mean Corpuscular Hemoglobin Concent 34.4 g/dl Platelet Count 163 K/uL Mean Platelet Volume 8.6 fL Neutrophils (%) (Auto) 64.9 % Lymphocytes (%) (Auto) 24.2 % Monocytes (%) (Auto) 8.7 % Eosinophils (%) (Auto) 1.8 % Basophils (%) (Auto) 0.1 % Neutrophils # (Auto) 5.17 K/uL Lymphocytes # (Auto) 1.93 K/uL Monocytes # (Auto) 0.69 K/uL Eosinophils # (Auto) 0.14 K/uL Basophils # (Auto) 0.01 K/uL RDW Standard Deviation 42.1 fL RDW Coefficient of Variation 13.0 % Immature Granulocyte % (Auto) 0.3 % Immature Granulocyte # (Auto) 0.02 K/uL Assessment and Plan 22 year old female admitted with RUQ and epigastric pain, elevated lipase, LFTs , d-dimer and leukocytosis of 18. Imaging suggestive of pancreatitis, biliary system unremarkable. Leukocytosis improving overnight, but pt did have a low grade temp last evening. Clinical concerned for cholangitis/retained CBD stone and was started on IV ABX. MRCP was negative and her LFTs have nearly normalized this AM with TB 5 --> 0.5. Clinically she feels well and is hungry. She likely had acute pancreatitis and LFT elevation from retained stone, which has now passed given resolution of her symptoms and improvement of her labs overnight. Doubt this was her oral contraception. - Treat the pancreatitis - Clear liquids - If tolerated can advance to low fat diet and d/c IVF - LR 200 ml/hr - antiemetics PRN - analgesia prn - Elevated LFTs - now normalized - Complete course of cipro/flagyl - Outpatient EUS - GI will follow, please call with any questions, concerns or acute changes. I performed a history and physical examination of the patient. I have discussed the patient's case, impression and plan with PHYLICIA Llamas. Her note reflects my findings and plan. Doing great today. No pain. Slowly advance diet. We will arrange out patient EUS to confirm stone has passed. Discussed with family at bedside as well. Lawrence Thompson MD
--- NOTE | 2017-11-23 17:14 | Progress Note ---
Internal Med Progress Note Date of Service: Nov 23, 2017. Provider Documentation: SUBJECTIVE: no fever spikes abdominal pain and nausea resolved tolerating clears no chest pain or sob no cough OBJECTIVE: Vital Signs-as noted below Exam: General-alert and oriented. Not in distress ENT-normal hearing. Neck-No neck masses Lungs-CTA b/l no wheezing or crackles Heart-S1 and S2 heard regular rhythm no murmurs Abdomen-soft Bowels sounds present mild epigastric tenderness present no distension Extremities-no edema no erythema Neuro-alert and oriented moves extremities Lab data as noted below. ASSESSMENT & PLAN: 22-year-old female presents with acute pancreatitis and possibly acute cholangitis. 1. Acute pancreatitis-etiologies include but not limited to oral contraceptive pills (suspect this most likely),possibly CBD stone or sludge. Holding ocp pills Ct abd/pelvis consistent acute pancreatitis US- shows no intra or extra hepatic biliary duct dilatation mrcp unremarkable npo, aggressive fluids iv pain meds and antiemetic prn improving tolerating clears mostly passed stone as per GI and Gi plans for EUS as out General-alert and oriented. Not in distress GI on board. Acute cholangitis? fever, leukocytosis elevated lft's f/u mrcp f/u labs started on iv cipro and flagyl lfts much improved no plan for ercp currently to complete abx course . History of SVT-patient reports being on atenolol in the past but then came off of it as she did not want to take a pill every day as per H and P.and no issues with SVT in the last couple of years. monitor in tele. PCOS-oral contraceptive pills being taken for this, menstrual cycles are regular. Patient denies any recent pelvic pain or breakthrough bleeding.Patient likes to go back on oc pills if possible.Notified patient and family ok to take OC pills Dvt px scds Disposition possible d/c in 1-2 days Vital Signs: Date Time Temp Pulse Resp B/P (MAP) Pulse Ox O2 Delivery O2 Flow Rate FiO2 11/23/17 16:00 Room Air 11/23/17 15:54 36.7 73 20 89/56 (67) 99 Room Air 11/23/17 12:00 97 Room Air 11/23/17 11:29 36.8 57 16 118/69 (85) 97 Room Air 11/23/17 08:00 98 Room Air 11/23/17 06:55 36.5 60 18 136/87 (103) 98 Room Air 11/23/17 04:00 Room Air 11/23/17 03:52 36.9 80 18 122/73 (89) 97 Room Air 11/23/17 00:01 36.8 66 18 127/78 (94) 98 Room Air 11/23/17 00:00 Room Air 11/22/17 20:00 36.7 69 16 136/65 (88) 98 Room Air 11/22/17 20:00 98 Room Air Lab Results: Results Past 24 Hours Test 11/23/17 06:37 11/23/17 06:40 Range/Units Sodium Level 139 136-145 mmol/L Potassium Level 3.9 3.5-5.1 mmol/L Chloride Level 111 98-107 mmol/L Carbon Dioxide Level 23 21-32 mmol/L Anion Gap 5.0 3-11 mmol/L Blood Urea Nitrogen 3 7-18 mg/dl Creatinine 0.51 0.60-1.20 mg/dl Est Creatinine Clear Calc Drug Dose 217.4 ml/min Estimated GFR () > 150.0 Estimated GFR (Non- 138.4 BUN/Creatinine Ratio 6.3 10-20 Random Glucose 86 70-99 mg/dl Calcium Level 7.8 8.5-10.1 mg/dl Magnesium Level 2.1 1.8-2.4 mg/dl Total Bilirubin 0.9 0.2-1 mg/dl Direct Bilirubin 0.5 0-0.2 mg/dl Aspartate Amino Transf (AST/SGOT) 43 15-37 U/L Alanine Aminotransferase (ALT/SGPT) 80 12-78 U/L Alkaline Phosphatase 98 45-117 U/L Total Protein 6.1 6.4-8.2 gm/dl Albumin 2.5 3.4-5.0 gm/dl Lipase 1215 73-393 U/L White Blood Count 7.96 4.8-10.8 K/uL Red Blood Count 3.73 4.2-5.4 M/uL Hemoglobin 11.5 12.0-16.0 g/dL Hematocrit 33.4 37-47 % Mean Corpuscular Volume 89.5 80-100 fL Mean Corpuscular Hemoglobin 30.8 25-34 pg Mean Corpuscular Hemoglobin Concent 34.4 32-36 g/dl Platelet Count 163 130-400 K/uL Mean Platelet Volume 8.6 7.4-10.4 fL Neutrophils (%) (Auto) 64.9 % Lymphocytes (%) (Auto) 24.2 % Monocytes (%) (Auto) 8.7 % Eosinophils (%) (Auto) 1.8 % Basophils (%) (Auto) 0.1 % Neutrophils # (Auto) 5.17 1.4-6.5 K/uL Lymphocytes # (Auto) 1.93 1.2-3.4 K/uL Monocytes # (Auto) 0.69 0.11-0.59 K/uL Eosinophils # (Auto) 0.14 0-0.5 K/uL Basophils # (Auto) 0.01 0-0.2 K/uL RDW Standard Deviation 42.1 36.4-46.3 fL RDW Coefficient of Variation 13.0 11.5-14.5 % Immature Granulocyte % (Auto) 0.3 % Immature Granulocyte # (Auto) 0.02 0.00-0.02 K/uL
[2017-11-24 04:30] VITALS: BP 109/69; PULSE 62; TEMP 36.6; O2SAT 98
[2017-11-24 07:21] LABS: BASO % 0.2 %; BASO ABS # 0.01 K/uL (0-0.2); EOS % 2.6 %; EOS ABS # 0.15 K/uL (0-0.5); HEMOGLOBIN 12.9 g/dL (12.0-16.0); IG# 0.01 K/uL (0.00-0.02); LYMPH % 39.4 %; LYMPH ABS # 2.26 K/uL (1.2-3.4); MEAN CELL VOLUME 89.2 fL (80-100); MEAN CORPUSCULAR HEMOGLOBIN 31.1 pg (25-34); MEAN CORPUSCULAR HGB CONC 34.9 g/dl (32-36); MONO % 7.5 %; MONO ABS # 0.43 K/uL (0.11-0.59); NEUT % 50.1 %; NEUT ABS # 2.87 K/uL (1.4-6.5); PLATELET COUNT 207 K/uL (130-400); RED CELL DISTRIBUTION WIDTH SD 42.1 fL (36.4-46.3); WHITE BLOOD COUNT 5.73 K/uL (4.8-10.8)
[2017-11-24] MEDS: ENOXAPARIN 40 MG/0.4 ML SYR SQ SCH (07:37)
[2017-11-24 07:53] LABS: CALCIUM 8.6 mg/dl (8.5-10.1); CREATININE 0.66 mg/dl (0.60-1.20); POTASSIUM 3.9 mmol/L (3.5-5.1)
[2017-11-24 08:08] VITALS: BP 115/68; PULSE 62; TEMP 36.7; O2SAT 98
--- NOTE | 2017-11-24 09:52 | Gastroenterology Progress Note ---
Progress Note Date of Service: Nov 24, 2017 Subjective Pt evaluation today including: conversation w/ patient, physical exam, chart review, lab review Pt was seen and evaluated, chart reviewed. No acute events overnight. Is feeling great - wants to go home. Tolerated clears last evening, and diet was advanced to low fat. Tolerated without any abdominal pain, nausea, vomiting. No fever, chills. Is passing gas, having BMs. TB 2 --> 4.9 --> 0.9 AST 219 --> 80 --> 43 ALT 169 --> 110 --> 80 ALKP 120 --> 105 --> 98 MRCP 11/22/17: Exam compromised given susceptibility artifact from the scoliosis hardware. However, no biliary ductal dilatation status post cholecystectomy. No mid to distal common bile duct calculi. This portion of the common bile duct is well evaluated on this exam. [place] of the right and left hepatic ducts, common hepatic duct and proximal common bile duct entirely obscured by susceptibility artifact but no upstream dilatation. Peripancreatic fluid extending into the anterior pararenal spaces indicative of acute pancreatitis. ABD US 11/21/17: The liver is normal in size and echotexture. There is no intrahepatic biliary ductal dilatation. The main portal vein is patent. Gallbladder: The gallbladder is surgically absent. The common bile duct measures up to 0.4 cm in diameter. No filling defects identified within the common duct by ultrasound. CT ABD/Pelvis 11/21/17: The contrast-enhanced liver is normal in size, contour, and attenuation.There is mild central intrahepatic biliary ductal dilatation. The hepatic veins and portal veins are patent. Gallbladder: Surgically absent noting clips in the gallbladder fossa. Spleen: Normal in size and attenuation. Pancreas: The pancreas appears mildly edematous. Peripancreatic stranding and fluid is identified. Fluid is also seen tracking inferiorly within the right retroperitoneal space. The appearance is consistent with acute pancreatitis. The gland enhances homogeneously. No organized peripancreatic fluid collection is identified. The splenic vein is patent. CTA 11/21/17: No central or lobar pulmonary emboli. Segmental and subsegmental pulmonary arteries suboptimally assessed due to streak artifact from the spinal hardware and suboptimal vascular opacification. No acute intrathoracic findings. Review of Systems Constitutional: No fever, No chills, No weight loss, No fatigue Respiratory: No cough, No shortness of breath Cardiac: No chest pain, No edema Abdomen: No pain, No nausea, No vomiting, No diarrhea, No constipation, No GI bleeding Skin: No rash, No itch, No bleeding, No jaundice Medications Current Inpatient Medications Medications (Trade) Dose Ordered Sig/Miryam Route Start Time Stop Time Status Last Admin Dose Admin Ioversol (Optiray 320) 100 ml UD PRN IV 11/21/17 12:45 11/25/17 12:44 Ondansetron HCl (Zofran Inj) 4 mg Q6H PRN IV 11/21/17 15:00 12/21/17 14:59 Hydromorphone HCl (Dilaudid Inj) 0.5 mg Q1H PRN IV 11/21/17 15:15 12/05/17 15:14 11/21/17 23:06 0.5 MG Acetaminophen 650 mg/Empty Bag 65 ml @ 260 mls/hr Q6H PRN IV 11/21/17 15:15 12/21/17 15:14 11/23/17 04:14 260 MLS/HR Enoxaparin Sodium (Lovenox Inj) 40 mg QAM SQ 11/22/17 09:00 12/22/17 08:59 Objective Vital Signs Date Time Temp Pulse Resp B/P (MAP) Pulse Ox O2 Delivery O2 Flow Rate FiO2 11/24/17 08:08 36.7 62 18 115/68 (84) 98 Room Air 11/24/17 08:00 Room Air 11/24/17 04:30 36.6 62 19 109/69 (82) 98 Room Air 11/24/17 04:00 Room Air 11/24/17 00:00 Room Air 11/23/17 23:04 36.9 67 18 109/68 (82) 98 Room Air 11/23/17 20:00 Room Air 11/23/17 19:41 36.9 65 20 138/87 (104) 97 Room Air 11/23/17 16:00 Room Air 11/23/17 15:54 36.7 73 20 89/56 (67) 99 Room Air 11/23/17 12:00 97 Room Air 11/23/17 11:29 36.8 57 16 118/69 (85) 97 Room Air Physical Exam General Appearance: no apparent distress Eyes: PERRL ENT: hearing grossly normal Neck: supple, trachea midline Respiratory/Chest: lungs clear, normal breath sounds, no respiratory distress, no accessory muscle use Cardiovascular: regular rate, rhythm, no gallop, no JVD, no murmur Abdomen: normal bowel sounds, non tender, soft, no organomegaly, no pulsatile mass Neurologic/Psych: alert, normal mood/affect, oriented x 3 Skin: normal color, no jaundice, warm/dry, no rash Laboratory Results Last 24 Hours Test 11/24/17 06:49 White Blood Count 5.73 K/uL Red Blood Count 4.15 M/uL Hemoglobin 12.9 g/dL Hematocrit 37.0 % Mean Corpuscular Volume 89.2 fL Mean Corpuscular Hemoglobin 31.1 pg Mean Corpuscular Hemoglobin Concent 34.9 g/dl Platelet Count 207 K/uL Mean Platelet Volume 9.0 fL Neutrophils (%) (Auto) 50.1 % Lymphocytes (%) (Auto) 39.4 % Monocytes (%) (Auto) 7.5 % Eosinophils (%) (Auto) 2.6 % Basophils (%) (Auto) 0.2 % Neutrophils # (Auto) 2.87 K/uL Lymphocytes # (Auto) 2.26 K/uL Monocytes # (Auto) 0.43 K/uL Eosinophils # (Auto) 0.15 K/uL Basophils # (Auto) 0.01 K/uL RDW Standard Deviation 42.1 fL RDW Coefficient of Variation 13.0 % Immature Granulocyte % (Auto) 0.2 % Immature Granulocyte # (Auto) 0.01 K/uL Sodium Level 139 mmol/L Potassium Level 3.9 mmol/L Chloride Level 109 mmol/L Carbon Dioxide Level 24 mmol/L Anion Gap 6.0 mmol/L Blood Urea Nitrogen 3 mg/dl Creatinine 0.66 mg/dl Est Creatinine Clear Calc Drug Dose 165.5 ml/min Estimated GFR () 147.4 Estimated GFR (Non- 127.2 BUN/Creatinine Ratio 4.5 Random Glucose 83 mg/dl Calcium Level 8.6 mg/dl Magnesium Level 2.1 mg/dl Total Bilirubin 0.8 mg/dl Direct Bilirubin 0.4 mg/dl Aspartate Amino Transf (AST/SGOT) 36 U/L Alanine Aminotransferase (ALT/SGPT) 81 U/L Alkaline Phosphatase 116 U/L Total Protein 7.0 gm/dl Albumin 3.0 gm/dl Assessment and Plan 22 year old female admitted with RUQ and epigastric pain, elevated lipase, LFTs , d-dimer and leukocytosis of 18. Imaging suggestive of pancreatitis, biliary system unremarkable. Leukocytosis improving overnight, but pt did have a low grade temp last evening. Clinical concerned for cholangitis/retained CBD stone and was started on IV ABX. MRCP was negative and her LFTs have nearly normalized this AM with TB 5 --> 0.5. Clinically improved, tolerating low fat diet w/ normalized labs. She likely had acute pancreatitis and LFT elevation from retained stone, which has now passed given resolution of her symptoms and improvement of her labs overnight. - Low fat diet - Outpatient EUS - No GI contraindication to discharge. GI to sign off. Please call with any acute changes, questions or concerns.
--- NOTE | 2017-11-24 10:52 | Discharge Instructions ---
Discharge Instructions Date of Service Nov 24, 2017. Admission Reason for Admission: Acute Pancreatitis Discharge Discharge Diagnosis / Problem: acute pancreatitis, elevated lft Discharge Goals Goal(s): Decrease discomfort, Improve function Activity Recommendations Activity Limitations: resume your previous activity . Instructions / Follow-Up Instructions / Follow-Up FOLLOWUP WITH FAMILY DOCTOR IN ONE WEEK FOLLOWUP WITH GI FOR EUS Current Hospital Diet Patient's current hospital diet: Low Fat Diet, Regular Diet Discharge Diet Recommended Diet: Regular Diet, Low Fat Diet Pending Studies Studies pending at discharge: no Medical Emergencies . Who to Call and When: Medical Emergencies: If at any time you feel your situation is an emergency, please call 911 immediately. . Non-Emergent Contact Non-Emergency issues call your: Primary Care Provider . . "Provider Documentation" section prepared by Marty Cardona. .
--- NOTE | 2017-11-24 18:30 | Discharge Summary ---
Discharge Summary Date of Service Nov 24, 2017. Discharge Summary Admission Date: Nov 21, 2017 at 15:01 Discharge Date: Nov 24, 2017 Discharge Disposition: Home Principal Diagnosis: ACUTE PANCREATITIS ELEVATED LFT Secondary Diagnoses/Problems: 1) Chronic cholecystitis with calculus Status: Chronic (2) On oral contraceptive pills for non-contraception indication Status: Chronic (3) PCOS (polycystic ovarian syndrome) Status: Chronic (4) SVT (supraventricular tachycardia) Status: Chronic Procedures: CTA CHEST: 1. No central or lobar pulmonary emboli. Segmental and subsegmental pulmonary arteries suboptimally assessed due to streak artifact from the spinal hardware and suboptimal vascular opacification. 2. No acute intrathoracic findings. CT ABD/PELVIS: 1. Findings are consistent with acute pancreatitis. 2. The pancreas enhances homogeneously. The splenic vein is patent and no organized peripancreatic fluid collection is identified. RUQ US: Unremarkable sonographic assessment of the right upper quadrant noting status post cholecystectomy. No intra or extrahepatic biliary ductal dilatation is identified. MRCP:1. Exam compromised given susceptibility artifact from the scoliosis hardware. However, no biliary ductal dilatation status post cholecystectomy. No mid to distal common bile duct calculi. This portion of the common bile duct is well evaluated on this exam. [place] of the right and left hepatic ducts, common hepatic duct and proximal common bile duct entirely obscured by susceptibility artifact but no upstream dilatation. 2. Peripancreatic fluid extending into the anterior pararenal spaces indicative of acute pancreatitis. Consultations: GI Medication Reconciliation Continued Medications: Norethindrone Acet & Eth Estra () 1 Tab Tab 1 TAB PO UD Tizanidine (Zanaflex) 2 Mg Cap 2 MG PO TID/PRN, CAP Admission Information HPI (per Admitting provider): 22-year-old female presents with acute epigastric pain for the last several days. She reports inability to eat because of severe pain. She denies any nausea or vomiting or diarrhea. Mother adds that patient has had a dull epigastric pain in her abdomen for approximately 1 month. The patient reports some fevers that were not documented at home and some chills. She reports having some recent sinus infections and colds that were not treated by a physician in the last few weeks. Sick contacts included family members. Importantly, 1 month ago her oral contraceptive dose was increased. She is on this for PCO S. She also has a history of SVT that is not recurrent and she is not on atenolol. She is also not on metformin. She has a history of a gallbladder removal last fall for symptomatic cholelithiasis. In the ER, her blood pressure is 124/78 pulse 66 she is afebrile and oxygenating well on room air. Lab work reveals a white count of 19,000, elevated liver enzymes (AST 219/ALT 169/AL P1 20), total bili is 2, total protein is 8.8, lipase is 57,000, troponin is negative. EKG reveals normal sinus rhythm at a normal rate. Urine test is negative. D-dimer was elevated and following this CTA was performed revealing no PE or other acute pulmonary issues. CT of the abdomen pelvis was consistent with acute pancreatitis. Physical Exam (per Admitting): General Appearance: WD/WN, no apparent distress Head: normocephalic, atraumatic Eyes: normal inspection, PERRL, sclerae normal ENT: normal ENT inspection, hearing grossly normal, pharynx normal Neck: supple, no adenopathy, no JVD, trachea midline Respiratory/Chest: lungs clear, normal breath sounds, no respiratory distress, no accessory muscle use Cardiovascular: regular rate, rhythm, no edema, no gallop, no JVD, no murmur , normal peripheral pulses Abdomen/GI: normal bowel sounds, soft, no organomegaly, + tenderness ( Epigastric) Back: normal inspection Extremities/Musculoskelatal: normal inspection, no calf tenderness, no pedal edema, normal range of motion Neurologic/Psych: supercharger mechanic II-XII nml as tested, no motor/sensory deficits, alert , normal mood/affect, oriented x 3 Skin: normal color, warm/dry, no rash Hospital Course 22-year-old female presents with acute pancreatitis and possibly acute cholangitis. 1. Acute pancreatitis-etiologies include but not limited to oral contraceptive pills (suspect this most likely),possibly CBD stone or sludge. Holding ocp pills Ct abd/pelvis consistent acute pancreatitis US- shows no intra or extra hepatic biliary duct dilatation mrcp unremarkable npo, aggressive fluids iv pain meds and antiemetic prn improving tolerating clears mostly passed stone as per GI and Gi plans for EUS as out General-alert and oriented. Not in distress GI on board. Acute cholangitis? fever, leukocytosis elevated lft's f/u mrcp f/u labs started on iv cipro and flagyl lfts much improved no plan for ercp currently to complete abx course . History of SVT-patient reports being on atenolol in the past but then came off of it as she did not want to take a pill every day as per H and P.and no issues with SVT in the last couple of years. monitor in tele. PCOS-oral contraceptive pills being taken for this, menstrual cycles are regular. Patient denies any recent pelvic pain or breakthrough bleeding.Patient likes to go back on oc pills if possible.Notified patient and family ok to take OC pills Dvt px scds Disposition possible d/c in 1-2 days Total time spent on discharge = 35MINUTES This includes examination of the patient, discharge planning, medication reconciliation, and communication with other providers. Discharge Instructions Discharge Instructions Date of Service Nov 24, 2017. Admission Reason for Admission: Acute Pancreatitis Discharge Discharge Diagnosis / Problem: acute pancreatitis, elevated lft Discharge Goals Goal(s): Decrease discomfort, Improve function Activity Recommendations Activity Limitations: resume your previous activity . Instructions / Follow-Up Instructions / Follow-Up FOLLOWUP WITH FAMILY DOCTOR IN ONE WEEK FOLLOWUP WITH GI FOR EUS Current Hospital Diet Patient's current hospital diet: Low Fat Diet, Regular Diet Discharge Diet Recommended Diet: Regular Diet, Low Fat Diet Pending Studies Studies pending at discharge: no Medical Emergencies . Who to Call and When: Medical Emergencies: If at any time you feel your situation is an emergency, please call 911 immediately. . Non-Emergent Contact Non-Emergency issues call your: Primary Care Provider . . "Provider Documentation" section prepared by Marty Cardona. .
== END 2017-11-24 12:44 | disposition home or self-care (01) | DRG 439 ==
LOC: C.EDB 10:54 → C.MED 15:01 → ENRESERV 15:28
PROVIDERS: ADMIT Hospitalist; ATTEND Internal Medicine
DX: K85.30 Drug induced acute pancreatitis without necrosis or infection (principal); K80.44 Calculus of bile duct with chronic cholecystitis without obstruction; I47.1 Supraventricular tachycardia; Z82.49 Family history of ischemic heart disease and other diseases of the circulatory system; E28.2 Polycystic ovarian syndrome; T38.4X5A Adverse effect of oral contraceptives, initial encounter; Z79.3 Long term (current) use of hormonal contraceptives; Y92.019 Unspecified place in single-family (private) house as the place of occurrence of the external cause

== ENCOUNTER → 2017-12-14 | Day surgery (SDC) | payer BC ==
[2017-12-07 14:14] VITALS: BMI 31.0
[~2017-12-14] VITALS: Ht 172.7 cm; Wt 94.1 kg
[~2017-12-14] MED LIST changes: +ATROPINE SULFATE 0.1 MG/ML 5ML SYR IV PRN; -BCPILLS PO; +DEXAMETHASONE SOD INJ 4 MG/ML VIAL ONE; +EpHEDrine SULFATE INJ 50 MG/ML AMP IV PRN; +FENTANYL CITRATE INJ 50 MCG/1 ML 2 ML VIAL IV PRN; +FENTANYL CITRATE INJ 50 MCG/1 ML 2 ML VIAL ONE; +FLUMAZENIL 0.1 MG/1 ML 10 ML VIAL IV PRN; +KETOROLAC TROMETHAMINE 30 MG/ML VIAL IV. PRN; +KETOROLAC TROMETHAMINE 30 MG/ML VIAL ONE; +LACTATED RINGER'S 1000ML 1,000 ML IV ONE; +LACTATED RINGER'S 1000ML 1,000 ML IV SCH; +LARYING-O-JET KIT (LTA) ONE; +LIDOCAINE HCL 2% 2 ML VIAL (20MG/ML) ONE; +MIDAZOLAM HCL 1 MG/ML 2ML VIAL ONE; +NALOXONE HCL 0.4 MG/1 ML VIAL/CARP IV PRN; +NORETAB3 PO; +ONDANSETRON INJ 2 MG/ML 2 ML VIAL IV PRN; +ONDANSETRON INJ 2 MG/ML 2 ML VIAL ONE; +PROMETHAZINE HCL INJ 12.5 MG in SODIUM CHLORIDE 0.9% 50ML 50 ML IV PRN; +PROPOFOL IV EMULSION 10 MG/ML 20 ML VIAL ONE; +ROCURONIUM BROMIDE 10 MG/ML 5 ML VIAL ONE; +SUCCINYLCHOLINE CHLORIDE 20 MG/ML 10 ML VIAL IV ONE
[2017-12-14 09:46] VITALS: BP 135/72; PULSE 68; TEMP 36.5; O2SAT 97; Ht 172.7 cm; Wt 94.1 kg
--- NOTE | 2017-12-14 09:58 | Endo History and Physical ---
History & Physical Date of Service: December 14, 2017. Chief Complaint: Abdominal pain Referring Physician: Dr. Thompson History of Present Illness 22-year-old female who had a cholecystectomy in March of 2017 for complications of gallstones presenting for upper endoscopy, endoscopic ultrasound and possible ERCP today. The patient had a recent hospital admission for mild pancreatitis associated with elevated liver enzymes. Imaging at that time was inconclusive. The patient does note having intermittent epigastric discomfort radiating towards her right shoulder. Past Surgical History Hx Cardiac Surgery: No Hx Abdominal Surgery: Yes (gall bladder removal May 2017) Hx Post-Op Nausea and Vomiting: Yes Hx Cancer Surgery: No Hx Thoracic Surgery: No Hx Orthopedic: Yes (Spinal fusion T2-T12) Hx Urinary Tract Surgery: No Social History Smoking Status: Never Smoker Hx Substance Use: No Hx Alcohol Use: No Allergies Coded Allergies: No Known Allergies (Unverified , 12/07/17) Current Medications Reported Home Medications Medications Dose Route/Sig Max Daily Dose Days Date Category .01/10 (Norethindrone Acet & Eth Estra) 1 Tab Tab 1 Tab PO UD 11/21/17 Reported Zanaflex (Tizanidine HCl) 2 Mg Cap 2 Mg PO TID/PRN 04/06/17 Reported Vital Signs Weight (Kilograms): 94.09 Height (Feet): 5 Height (Inches): 8 Physical Exam General Appearance: no apparent distress Respiratory/Chest: Respiratory effort: no dyspnea Cardiovascular: Heart Auscultation: RRR Abdomen: Inspection & Palpation: soft Assessment and Plan Patient status post cholecystectomy with recurrent abdominal discomfort and a recent elevation of her liver associated enzymes. We are planning to do upper endoscopy and endoscopic ultrasound to evaluate for evidence of choledocholithiasis. If negative we will likely observe the patient's course as she may otherwise have sutures Oddi dysfunction. We discussed the risks and benefits of upper endoscopy EUS and ERCP to include bleeding, infection, perforation, failed cannulation and a higher than average risk of pancreatitis given her young age. Plan EGD / EUS today ERCP if stones are identified 1 liter LR pre-op, Indocin suppository if ERCP performed.
[2017-12-14 11:03] LABS: ALBUMIN 3.5 gm/dl (3.4-5.0); CALCIUM 8.6 mg/dl (8.5-10.1); CREATININE 0.65 mg/dl (0.60-1.20)
[2017-12-14 11:05] LABS: TOTAL PROTEIN 7.4 gm/dl (6.4-8.2)
--- NOTE | 2017-12-14 11:23 | GI REPORT ---
Patient Name: Laurie Dhillon Procedure Date: 12/14/2017 10:56 AM Date of : 1995 Admit Type: Outpatient Age: 22 Gender: Female Attending MD: William Moralez DO Procedure: Upper GI endoscopy Providers: William Moralez DO Referring MD: Lawrence Thompson MD, Dima Rose Indications: Epigastric abdominal pain Medicines: General Anesthesia Complications: No immediate complications. Estimated blood loss: Minimal. Estimated Blood Loss: Estimated blood loss was minimal. Procedure: Pre-Anesthesia Assessment: - Prior to the procedure, a History and Physical was performed, and patient medications, allergies and sensitivities were reviewed. The patient's tolerance of previous anesthesia was reviewed. - The risks and benefits of the procedure and the sedation options and risks were discussed with the patient. All questions were answered and informed consent was obtained. - Patient identification and proposed procedure were verified prior to the procedure by the physician, the nurse and the pit supervisor. The procedure was verified in the procedure room. - Pre-procedure physical examination revealed no contraindications to sedation. - ASA Grade Assessment: II - A patient with mild systemic disease. - After reviewing the risks and benefits, the patient was deemed in satisfactory condition to undergo the procedure. - The anesthesia plan was to use general anesthesia. - Immediately prior to administration of medications, the patient was re-assessed for adequacy to receive sedatives. - The heart rate, respiratory rate, oxygen saturations, blood pressure, adequacy of pulmonary ventilation, and response to care were monitored throughout the procedure. - The physical status of the patient was re-assessed after the procedure. After obtaining informed consent, the endoscope was passed under direct vision. Throughout the procedure, the patient's blood pressure, pulse, and oxygen saturations were monitored continuously. The On-site loaner was introduced through the mouth, and advanced to the third part of duodenum. The upper GI endoscopy was accomplished without difficulty. The patient tolerated the procedure well. Findings: The examined esophagus was normal. The Z-line was regular and was found 38 cm from the incisors. The cardia, gastric fundus, gastric body and incisura were normal. Diffuse mild inflammation characterized by erythema and granularity was found in the gastric antrum. Biopsies were taken with a cold forceps for histology. Estimated blood loss was minimal. The examined duodenum was normal. Biopsies for histology were taken with a cold forceps for for evaluation of celiac disease. Estimated blood loss was minimal. Impression: - Normal esophagus. - Z-line regular, 38 cm from the incisors. - Normal cardia, gastric fundus, gastric body and incisura. - Gastritis. Biopsied. - Normal examined duodenum. Biopsied. Recommendation: - Perform an upper endoscopic ultrasound (UEUS) today. - Await pathology results. William Moralez D.O. William Moralez, 12/14/2017 11:23:13 AM This report has been signed electronically. Note Initiated On: 12/14/2017 10:56 AM Number of Addenda: 0 I attest to the content of the Intraoperative Record and orders documented therein, exceptions below {[id number]}
--- NOTE | 2017-12-14 11:39 | [facility] Post Operative Brief Note ---
Immediate Operative Summary Operative Date December 14, 2017. Pre-Operative Diagnosis Suspected Gallstones Post-Operative Diagnosis Mild gastritis Procedure(s) Performed Esophagogastroduodenoscopy with biopsies; Upper Endoscopic Ultrasonography Surgeon Dr. William Moralez Director Translational Surgeon(s) none Estimated Blood Loss 0mL Findings Consistent with Post-Op Diagnosis Specimens 1) duodenuma 2) gastric antrum Drains None Anesthesia Type General Complication(s) none Disposition Accompanied Pt To Recover: no Disposition: Recovery Room / PACU
--- NOTE | 2017-12-14 11:39 | GI REPORT ---
Patient Name: Laurie Dhillon Procedure Date: 12/14/2017 10:58 AM Date of : 1995 Admit Type: Outpatient Age: 22 Gender: Female Attending MD: William Moralez DO Procedure: Upper EUS Providers: William Moralez DO Referring MD: Lawrence Thompson MD, Dima Rose Indications: Suspected choledocholithiasis, Epigastric abdominal pain, Abdominal pain in the right upper quadrant Medicines: General Anesthesia Complications: No immediate complications. Estimated blood loss: Minimal. Estimated Blood Loss: Estimated blood loss was minimal. Procedure: Pre-Anesthesia Assessment: - Prior to the procedure, a History and Physical was performed, and patient medications, allergies and sensitivities were reviewed. The patient's tolerance of previous anesthesia was reviewed. - The risks and benefits of the procedure and the sedation options and risks were discussed with the patient. All questions were answered and informed consent was obtained. - Patient identification and proposed procedure were verified prior to the procedure by the physician, the nurse and the licensing court magistrate. The procedure was verified in the procedure room. - Pre-procedure physical examination revealed no contraindications to sedation. - ASA Grade Assessment: II - A patient with mild systemic disease. - After reviewing the risks and benefits, the patient was deemed in satisfactory condition to undergo the procedure. - The anesthesia plan was to use general anesthesia. - Immediately prior to administration of medications, the patient was re-assessed for adequacy to receive sedatives. - The heart rate, respiratory rate, oxygen saturations, blood pressure, adequacy of pulmonary ventilation, and response to care were monitored throughout the procedure. - The physical status of the patient was re-assessed after the procedure. After obtaining informed consent, the endoscope was passed under direct vision. Throughout the procedure, the patient's blood pressure, pulse, and oxygen saturations were monitored continuously. The Scope was introduced through the mouth, and advanced to the third part of duodenum. The upper EUS was accomplished without difficulty. The patient tolerated the procedure well. Findings: Endosonographic Finding : There was no sign of significant endosonographic abnormality in the ampulla. No masses were identified. There was minimal dilation in the common bile duct which measured up to 5 mm. No retained stones were seen today. Evidence of a previous cholecystectomy was identified endosonographically. There was no sign of significant endosonographic abnormality in the liver. Homogeneous parenchyma and no focal pathology were identified. There was no sign of significant endosonographic abnormality in the entire pancreas. No masses, no cysts, no calcifications, the pancreatic duct was thin in caliber. No lymphadenopathy seen. There was no sign of significant endosonographic abnormality in the left adrenal gland. No adrenal gland enlargement was identified. Impression: - Normal ampulla. - There was mild dilation in the common bile duct which measured up to 5 mm. This is consistent with a prior cholecystectomy. - Evidence of a cholecystectomy. - Visualized portions of liver were normal. - Normal pancreas. - Endosonographic images of the left adrenal gland were unremarkable. - No specimens collected. Recommendation: - Discharge patient to home (ambulatory). - Advance diet as tolerated today. - Observe patient's clinical course following today's procedure - If patient has recurrent symptoms with elevated enzymes would consider an ERCP for sphincter of oddi dysfunction. William Moralez D.O. William Moralez, 12/14/2017 11:38:39 AM This report has been signed electronically. Note Initiated On: 12/14/2017 10:58 AM Number of Addenda: 0 I attest to the content of the Intraoperative Record and orders documented therein, exceptions below {[id number]}
--- NOTE | 2017-12-14 11:57 | Discharge Instructions ---
Endoscopy Patient Instructions Date / Procedure(s) Performed December 14, 2017. EGD, Other (endoscopic ultrasound) Allergy Information Coded Allergies: No Known Allergies (Unverified , 12/07/17) Discharge Date / Findings December 14, 2017. Mild gastritis Normal appearing common bile duct (no gallstones seen today) Medication Instructions Reported Home Medications Medications Dose Route/Sig Max Daily Dose Days Date Category June.01/10 (Norethindrone Acet & Eth Estra) 1 Tab Tab 1 Tab PO UD 11/21/17 Reported Zanaflex (Tizanidine HCl) 2 Mg Cap 2 Mg PO TID/PRN 04/06/17 Reported Provider Instructions Activity Restrictions - No exercising or heavy lifting for 24 hours. - Do not drink alcohol the day of the procedure. - Do not drive a car or operate machinery until the day after the procedure. - Do not make any important decisions or sign important papers in 24 hours after the procedure. Following Day: - Return to full activity which may include returning to work/school. Diet Start your diet with liquids and light foods (jello, soup, juice, toast). Then eat your usual diet if not nauseated. Treatment For Common After Affects For mild abdominal pain, bloating, or excessive gas: - Rest - Eat lightly - Lie on right side Follow-Up Information Follow-up with Dr. Moralez or [facility] as needed Anesthesia Information What You Should Know You have had a procedure that required some medicine to reduce anxiety and discomfort. This treatment is called moderate sedation. After receiving the treatment, you may be sleepy, but you will be able to breathe on your own. The effects of the treatment may last for several hours. Follow these instructions along with Activity/Diet recommendations noted above: * Do NOT do anything where dizziness or clumsiness would be dangerous. * Rest quietly at home today, then you can be up and about tomorrow. * Have a responsible person stay with you the rest of today. * You may have had an I.V. today. If so, you may take the dressing off later today. Recommendations Call your doctor if: * Trouble breathing * Continuous vomiting for more than 24 hours * Temperature above 101 degrees * Severe abdominal pain or bloating * Pain not relieved by pain medicine ordered * There is increased drainage or redness from any incision * A large amount of rectal bleeding greater than 2-3 tablespoons. (If you had a polyp/s removed or have hemorrhoids, a small amount of blood - from the rectum is to be expected.) * You have any unanswered questions or concerns. IN THE EVENT OF A SERIOUS EMERGENCY, GO TO THE NEAREST EMERGENCY ROOM Your discharge instructions were prepared by provider William Moralez. Patient Instructions Signature Page Laurie Dhillon Patient (or Guardian) Signature/Date: I have read and understand the instructions given to me by my caregivers. Caregiver/RN/Doctor Signature/Date: The above-named patient and/or guardian has received patient instructions on this date. + Original Patient Signature Page (only) stays with chart. Please make copy for patient.
--- NOTE | 2017-12-14 12:22 | Anesthesiology Progress Note ---
Anesthesia Post Op Note Date & Time December 14, 2017 at 12:22 Vital Signs Pain Intensity: 3 Vital Signs Past 12 Hours Date Time Temp Pulse Resp B/P (MAP) Pulse Ox O2 Delivery O2 Flow Rate FiO2 12/14/17 12:15 36.4 61 14 122/76 98 Room Air 12/14/17 12:05 61 14 131/74 100 Oxymask 8 12/14/17 11:55 64 16 128/90 100 Oxymask 8 12/14/17 11:46 36 86 16 145/83 100 Oxymask 8 12/14/17 09:46 36.5 68 16 135/72 (93) 97 Notes Mental Status: alert / awake / arousable, participated in evaluation Pt Amnestic to Procedure: Yes Nausea / Vomiting: adequately controlled Pain: adequately controlled Airway Patency, RR, SpO2: stable & adequate BP & HR: stable & adequate Hydration State: stable & adequate Anesthetic Complications: no major complications apparent
[2017-12-14 12:25] VITALS: BP 121/70; PULSE 57; TEMP 36.5; O2SAT 100
[2017-12-14 12:55] VITALS: BP 113/62; PULSE 65; TEMP 36.5; O2SAT 99
== END | disposition home or self-care (01) ==
LOC: C.ACU 09:14
PROVIDERS: ATTEND Internal Medicine Gastroenterology
DX: R10.9 Unspecified abdominal pain (principal); Z90.49 Acquired absence of other specified parts of digestive tract; Z86.79 Personal history of other diseases of the circulatory system; F41.9 Anxiety disorder, unspecified; F32.9 Major depressive disorder, single episode, unspecified; E66.9 Obesity, unspecified

== ENCOUNTER 2021-08-05 08:00 | Inpatient (IN) ==
[2021-08-05] MEDS ORDERED: OXYTOCIN 30 UNITS/500 ML BAG IV PRN ×2 (08:19→08:51)
[2021-08-05 09:02] LABS: Hematocrit (blood only) 38.2 % (37-47); Hemoglobin 13.2 g/dL (12.0-16.0); Mean Corpuscular Hemoglobin 32.3 pg (25-34); Mean Corpuscular Hgb Conc 34.6 g/dL (32-36); Mean Corpuscular Volume 93.4 fL (80-100); Mean Platelet Volume 9.2 fL (7.4-10.4); Platelet Count 231 K/uL (130-400); RDW Coefficient of Variation 12.9 % (11.5-14.5); RDW Standard Deviation 43.7 fL (36.4-46.3); Red Blood Count 4.09 M/uL (4.2-5.4); White Blood Count 14.83 K/uL (4.8-10.8)
[2021-08-05] MEDS: LACTATED RINGER'S 1,000 ML IV PRN ×2 (09:15→20:24)
--- NOTE | 2021-08-05 09:55 | History & Physical Report ---
Date of Service August 05, 2021 Assessment & Plan (1) Encounter for induction of labor: Plan: admit, iv, labs. ho placed, start pitocin, fhts categ 1. watch bp trend and then may need to check cmp. denies sx or concerns. Admission and Anticipated Discharge Date Admission Date: August 05, 2021 History of Present Illness Chief Complaint: planned postdates induction Primary Care Provider: Flaca Washington, DO 26yo at 40+wks ericka presents to L&D for planned induction. She lives far away so planned ho and pit this am. No new sx. +FM. PNC c/b 1. postdates 2. obesity 3. T1-12 fusion, had anesth consult PNL rh pos, ri, gbs neg OBH: g0 GYNH: nl paps, no stds Allergies Allergy/AdvReac Type Severity Reaction Status Date / Time No Known Allergies Allergy Verified 08/04/21 14:25 Home Medications Medication Instructions Recorded Confirmed Type prenat.vits,urvashi,[id number] 1 tab PO DAILY 12/14/20 08/04/21 History Breast Pump #1 ea 04/09/21 08/04/21 Rx Breast Pump #1 ea 04/09/21 08/04/21 Rx Patient History Medical History Acute pancreatitis Chronic cholecystitis with calculus History of chicken pox Protrusion of lumbar intervertebral disc Scoliosis Use of letrozole (Femara) Varicella vaccination Surgical History History of back surgery History of cholecystectomy History of tonsillectomy and adenoidectomy History of tooth extraction Family History Mother Heart disease Father Hypertension Grandmother (Maternal) Bladder cancer Grandfather (Paternal) Pancreatic cancer Denies family history of Ovarian cancer Prostate cancer Breast cancer Colorectal cancer Social History Smoking Status: Never smoker Second Hand Exposure: No; Hx Alcohol Use: No Hx Substance Use: No Preferred Language: Liberian Communication Ability: Effective Visual Impairment: No Limitations Hearing Ability: Normal Chemical Weigher Required: No Beliefs That Will Affect Care: None marital status: marital status details: Jayjay Jung (25) [phone], [phone] Current Living Situation: Spouse Current Living Situation Comment: lives with spouse, 2 dogs current occupational status: employed current occupation: [employer] Other Information That Helps Us Care for You: No Feels Safe at Home: Yes Childhood Exposure to Second-Hand Smoke: No caffeine: No during the past year weight has: remained stable Dental Care, Regularly: Yes Assistive Devices: None Review of Systems as per Subjective / HPI Physical Exam Constitutional: WD/WN, vitals as above Respiratory: normal respiratory effort, lungs clear to auscultation Cardiovascular: Rate/Rhythm: regular rate and regular rhythm Gastrointestinal (Abdomen): soft gravid nt EFW 8-9# Musculoskeletal: no edema nontender calves Neurologic: grossly normal Psychiatric: A+Ox3, euthymic affect Genitourinary: Manual OB Exam: + cervical dilation 1 cm, + cervical effacement 50% and + station -2 OB Exam Monitor Tracing: + external FHT monitor used, + external uterine monitor used (irreg), + category I and + normal FHT variability PROCEDURE: sse cx visualized, grasped on ant lip with ring forcep, ho through os and balloon inflated with 40cc sterile water. Spec removed, ho taped to leg. pt anna well. Results & Data ([facility]) Vital Signs (Past 12 Hours) Vital Signs Temp Pulse Resp BP 08/05/21 08:20 98.1 F 88 20 142/82 H 08/05/21 08:12 88 142/82 H Coding Level of Care Code None Diagnoses Encounter for induction of labor Z34.90
[2021-08-05] MEDS ORDERED: NALOXONE HCL 1 MG in SODIUM CHLORIDE 0.9% 1000ML 1,000 ML IV PRN (14:30)
[2021-08-05] MEDS ORDERED: ONDANSETRON INJ 2 MG/ML 2 ML VIAL IV PRN (14:30)
[2021-08-05] MEDS ORDERED: NALBUPHINE HCL INJ 10 MG/ML AMP IV PRN (14:30)
[2021-08-05] MEDS ORDERED: fentaNYL 2MCG/ML ROPIVACAINE 1.25MG/ML 100 ML BAG EPI PRN (14:30)
[2021-08-05] MEDS ORDERED: ePHEDrine sulfate 50 MG/ML AMP IV PRN (14:30)
[2021-08-05] MEDS ORDERED: diphenhydrAMINE 50 MG/ML VIAL IV PRN (14:30)
[2021-08-05] MEDS ORDERED: NALOXONE HCL 0.4 MG/1 ML VIAL/CARP IV PRN (14:30)
--- NOTE | 2021-08-05 14:30 | Anesthesiology Consultation ---
Date of Service August 05, 2021 Assessment & Plan ASA ASA3 Proposed Anesthesia Anesthesia Type: Labor Epidural Risk / Benefits Reviewed With: PT / POA / Parent / Guardian, Accepts Plan and Informed Consent Obtained History Height/Weight Weight: 131.542 kg Allergies Allergy/AdvReac Type Severity Reaction Status Date / Time No Known Allergies Allergy Verified 08/04/21 14:25 Medications Home Medications Medication Instructions Recorded Confirmed Last Taken prenat.vits,urvashi,pst-gkcp-fajzb 1 tab PO DAILY 12/14/20 08/04/21 07/22/21 08:00 Breast Pump #1 ea 04/09/21 08/04/21 Unknown Breast Pump #1 ea 04/09/21 08/04/21 Unknown Active Medications Generic Name Dose Route Start Last Admin Trade Name Freq PRN Reason Stop Dose Admin Lactated Ringer's 1,000 mls @ 125 mls/hr 08/05/21 08:19 08/05/21 14:30 Lr IV 08/07/21 08:18 999 mls/hr .Q8H PRN Titration L&D Protocol Protocol Oxytocin 30 units in 500 mls @ 5 mls/hr 08/05/21 08:51 08/05/21 14:39 Pitocin IV 08/07/21 08:50 0.3 units/hr .Q24H PRN 5 mls/hr Labor Induction/Augmentation Titration Protocol 0.3 UNITS/HR Past Medical History Medical History Acute pancreatitis Chronic cholecystitis with calculus History of chicken pox Protrusion of lumbar intervertebral disc left L5-S1 with intermittent radic Scoliosis Use of letrozole (Femara) Varicella vaccination Exercise / Class Metabolic Activity II 4-5 Yardwork/Stairs/Walk up hill Past Family History Family History Mother Heart disease Father Hypertension Grandmother (Maternal) Bladder cancer Grandfather (Paternal) Pancreatic cancer Denies family history of Ovarian cancer Prostate cancer Breast cancer Colorectal cancer Past Surgical History Surgical History History of back surgery T4-12 posterior fusion and instrumentation History of cholecystectomy History of tonsillectomy and adenoidectomy History of tooth extraction Past Anesthesia History No Hx of Anesthesia Complications and No Family Hx of Anesthesia Complications History of PONV No Hx of PONV and No Hx of Motion Sickness Social History Smoking Status: Never smoker Hx Alcohol Use: No Hx Substance Use: No substance use type: does not use Review of Systems denies fever/cough/ colds/ chest pain/ SOB/ KATI denies KATI Physical Exam Vital Signs Last Vital Signs Temp 36.7 C 08/05/21 08:20 Pulse 60 08/05/21 15:10 Resp 20 08/05/21 12:26 BP 138/62 08/05/21 15:10 Pulse Ox 100 08/05/21 15:10 ENMT Mouth: no TMJ abnormality and no dentition abnormality Thyromental Distance: > or= 3.5 Finger Breadths Mallampati Class: II Neck neck extension not limited Respiratory normal respiratory effort; no respiratory distress Auscultation: lungs clear to auscultation bilaterally Cardiovascular Rate/Rhythm: regular rate and regular rhythm Neurologic moves all extremities Psychiatric Orientation: alert and oriented x 3 Testing Laboratory Results 08/05/21 08:45
[2021-08-05] MEDS ORDERED: fentaNYL citrate 100 MCG/2 ML VIAL ONE (14:32)
[2021-08-05] MEDS ORDERED: SODIUM CHLORIDE 0.9% INJ 10 ML VIAL ONE (14:32)
[2021-08-05] MEDS ORDERED: ePHEDrine sulfate 50 MG/ML AMP ONE (14:32)
[2021-08-05] MEDS ORDERED: BUPIVACAINE 0.25% 30 ML VIAL ONE (14:32)
[2021-08-05] MEDS ORDERED: fentaNYL 2MCG/ML ROPIVACAINE 1.25MG/ML 100 ML BAG EPI ONE (14:33)
--- NOTE | 2021-08-05 14:36 | Labor Progress Brief Note ---
Date of Service August 05, 2021 Subjective more pain with ctx. ? leaking Assessment & Plan (1) Encounter for induction of labor: Plan: will cont pit, requests epidural. fhts categ 1. will see what mvu's are ultimately and keep >200. pt and partner aware of meconium stained fluid. ?s answered. Admission and Anticipated Discharge Date Admission Date: August 05, 2021 Physical Exam Constitutional: WD/WN, vitals as above Genitourinary: Manual OB Exam: + cervical dilation 5 cm, + cervical effacement 80%, + station -2 and + amniotic fluid (arom ) meconium OB Exam Monitor Tracing: + external FHT monitor used, + external uterine monitor used (not traced well, iupc placed. ), + category I and + normal FHT variability Pit at 10 Results & Data ([facility]) Vital Signs (Past 12 Hours) Vital Signs Temp Pulse Pulse Resp BP BP 08/05/21 14:31 58 L 123/83 08/05/21 14:01 60 135/81 08/05/21 13:34 60 116/66 08/05/21 13:00 54 L 130/63 08/05/21 12:26 57 L 20 140/73 08/05/21 12:08 57 L 130/66 08/05/21 11:50 63 133/68 08/05/21 11:30 64 18 130/60 08/05/21 11:09 63 139/72 08/05/21 10:33 66 130/69 08/05/21 10:30 18 08/05/21 10:03 56 L 132/73 08/05/21 08:20 98.1 F 88 20 142/82 H 08/05/21 08:15 97.9 F 88 18 142/82 H 08/05/21 08:12 88 142/82 H Coding Level of Care Code None Diagnoses Encounter for induction of labor Z34.90
--- NOTE | 2021-08-05 19:34 | Labor Progress Brief Note ---
Date of Service August 05, 2021 Subjective no pain issues. Assessment & Plan (1) Encounter for induction of labor: Plan: some cx change but likely need more power with pitocin. keep pit to keep mvus >200. fhts categ 2 earlier, now categ 1. Admission and Anticipated Discharge Date Admission Date: August 05, 2021 Physical Exam Constitutional: WD/WN, vitals as above Genitourinary: Manual OB Exam: + cervical dilation 6 cm, + cervical effacement (with ctx) 80% and + station -2 OB Exam Monitor Tracing: + external FHT monitor used, + external uterine monitor used, + category II (variables) and + normal FHT variability FSE applied as difficult to trace fhts due to obesity, position change. Results & Data ([facility]) Vital Signs (Past 12 Hours) Vital Signs Temp Pulse Pulse Resp BP BP Pulse Ox 08/05/21 19:27 81 99 08/05/21 19:24 67 134/73 08/05/21 19:22 78 99 08/05/21 19:17 72 98 08/05/21 19:12 73 98 08/05/21 19:07 73 98 08/05/21 19:02 64 98 08/05/21 19:00 99.3 F 18 08/05/21 18:57 69 98 08/05/21 18:55 66 119/57 L 08/05/21 18:52 69 98 08/05/21 18:47 73 98 08/05/21 18:45 101.7 F H 77 18 147/77 H 99 08/05/21 18:40 61 98 08/05/21 18:35 61 97 08/05/21 18:30 64 98 08/05/21 18:25 91 H 147/77 H 98 08/05/21 18:20 69 98 08/05/21 18:15 67 97 08/05/21 18:10 69 97 08/05/21 18:05 72 99 08/05/21 18:00 71 98 08/05/21 17:55 73 142/68 H 98 08/05/21 17:50 79 97 08/05/21 17:45 86 97 08/05/21 17:40 74 99 08/05/21 17:35 68 97 08/05/21 17:30 81 18 98 08/05/21 17:26 74 123/66 08/05/21 17:25 71 99 08/05/21 17:20 63 99 08/05/21 17:15 61 99 08/05/21 17:10 64 100 08/05/21 17:05 63 100 08/05/21 17:00 61 20 100 08/05/21 16:55 72 99 08/05/21 16:53 63 129/59 L 08/05/21 16:50 70 100 08/05/21 16:45 67 98 08/05/21 16:40 63 99 08/05/21 16:38 63 115/61 08/05/21 16:35 67 99 08/05/21 16:30 60 18 99 08/05/21 16:25 78 100 08/05/21 16:24 67 133/60 08/05/21 16:20 81 100 08/05/21 16:15 78 99 08/05/21 16:10 65 99 08/05/21 16:08 69 129/65 08/05/21 16:05 65 100 08/05/21 16:00 79 20 99 08/05/21 15:55 65 100 08/05/21 15:50 74 100 08/05/21 15:45 64 129/60 100 08/05/21 15:40 70 127/64 100 08/05/21 15:35 67 129/60 100 08/05/21 15:31 82 114/73 08/05/21 15:30 97.9 F 82 82 20 114/73 114/73 100 08/05/21 15:25 66 100 08/05/21 15:22 68 138/59 L 08/05/21 15:20 63 100 08/05/21 15:19 61 149/57 H 08/05/21 15:15 64 100 08/05/21 15:14 66 131/56 L 08/05/21 15:12 61 127/60 08/05/21 15:10 60 138/62 100 08/05/21 15:08 61 136/60 08/05/21 15:06 61 143/71 H 08/05/21 15:05 64 99 08/05/21 15:04 58 L 140/69 08/05/21 15:00 69 69 20 140/69 99 08/05/21 14:57 60 146/89 H 08/05/21 14:55 70 100 08/05/21 14:50 62 99 08/05/21 14:31 58 L 123/83 08/05/21 14:01 60 135/81 08/05/21 14:00 60 20 135/81 08/05/21 13:34 60 116/66 08/05/21 13:00 54 L 130/63 08/05/21 12:26 57 L 20 140/73 08/05/21 12:08 57 L 130/66 08/05/21 11:50 63 133/68 08/05/21 11:30 64 18 130/60 08/05/21 11:09 63 139/72 08/05/21 10:33 66 130/69 08/05/21 10:30 18 08/05/21 10:03 56 L 132/73 08/05/21 08:20 98.1 F 88 20 142/82 H 08/05/21 08:15 97.9 F 88 18 142/82 H 08/05/21 08:12 88 142/82 H Coding Level of Care Code None Diagnoses Encounter for induction of labor Z34.90
--- NOTE | 2021-08-05 23:13 | Labor Progress Brief Note ---
Date of Service August 05, 2021 Subjective pt feels comfortable overall Assessment & Plan (1) Encounter for induction of labor: Plan: some cx change. fhts mostly seem to be early decels but also occas poss variable decel. we repositioned pt, provide bolus, will add amnioinfusion. Admission and Anticipated Discharge Date Admission Date: August 05, 2021 Physical Exam Constitutional: WD/WN, vitals as above Genitourinary: Manual OB Exam: + cervical dilation 7 cm, + cervical effacement 90% and + station -1 OB Exam Monitor Tracing: + scalp electrode used (140 ), + intra-uterine pressure catheter used (q2), + category I (early decels) and + normal FHT variability Results & Data ([facility]) Vital Signs (Past 12 Hours) Vital Signs Temp Pulse Pulse Resp BP BP Pulse Ox 08/05/21 23:07 81 97 08/05/21 23:02 74 97 08/05/21 22:57 86 97 08/05/21 22:55 72 144/81 H 08/05/21 22:52 76 98 08/05/21 22:47 80 100 08/05/21 22:42 91 H 98 08/05/21 22:37 76 98 08/05/21 22:32 82 98 08/05/21 22:27 82 98 08/05/21 22:24 78 140/68 08/05/21 22:22 82 98 08/05/21 22:17 71 98 08/05/21 22:12 80 99 08/05/21 22:07 83 97 08/05/21 22:02 83 98 08/05/21 21:57 92 H 98 08/05/21 21:55 88 139/75 08/05/21 21:52 86 97 08/05/21 21:47 86 97 08/05/21 21:42 91 H 97 08/05/21 21:37 91 H 96 08/05/21 21:32 98 H 97 08/05/21 21:27 94 H 98 08/05/21 21:25 92 H 138/77 08/05/21 21:22 104 H 98 08/05/21 21:17 81 98 08/05/21 21:13 97.7 F 18 08/05/21 21:12 98 H 97 08/05/21 21:07 85 98 08/05/21 21:02 86 98 08/05/21 20:57 91 H 97 08/05/21 20:56 85 133/77 08/05/21 20:52 84 98 08/05/21 20:47 88 98 21 20:42 91 H 98 08/05/21 20:37 82 98 08/05/21 20:32 88 97 08/05/21 20:27 74 98 08/05/21 20:24 75 142/66 H 08/05/21 20:22 74 98 08/05/21 20:17 78 98 08/05/21 20:12 82 98 08/05/21 20:07 92 H 98 08/05/21 20:02 87 98 08/05/21 20:01 18 08/05/21 19:57 83 98 08/05/21 19:55 88 137/69 08/05/21 19:52 72 97 08/05/21 19:47 77 97 08/05/21 19:42 85 97 08/05/21 19:37 75 97 08/05/21 19:32 84 98 08/05/21 19:27 81 99 08/05/21 19:24 67 134/73 08/05/21 19:22 78 99 08/05/21 19:17 72 98 08/05/21 19:12 73 98 08/05/21 19:07 73 98 08/05/21 19:02 64 98 08/05/21 19:00 99.3 F 18 08/05/21 18:57 69 98 08/05/21 18:55 66 119/57 L 08/05/21 18:52 69 98 08/05/21 18:47 73 98 08/05/21 18:45 101.7 F H 77 18 147/77 H 99 08/05/21 18:40 61 98 08/05/21 18:35 61 97 08/05/21 18:30 64 98 08/05/21 18:25 91 H 147/77 H 98 08/05/21 18:20 69 98 08/05/21 18:15 67 97 08/05/21 18:10 69 97 08/05/21 18:05 72 99 08/05/21 18:00 71 98 08/05/21 17:55 73 142/68 H 98 08/05/21 17:50 79 97 08/05/21 17:45 86 97 08/05/21 17:40 74 99 08/05/21 17:35 68 97 08/05/21 17:30 81 18 98 08/05/21 17:26 74 123/66 08/05/21 17:25 71 99 08/05/21 17:20 63 99 08/05/21 17:15 61 99 08/05/21 17:10 64 100 08/05/21 17:05 63 100 08/05/21 17:00 61 20 100 08/05/21 16:55 72 99 08/05/21 16:53 63 129/59 L 08/05/21 16:50 70 100 08/05/21 16:45 67 98 08/05/21 16:40 63 99 08/05/21 16:38 63 115/61 08/05/21 16:35 67 99 08/05/21 16:30 60 18 99 08/05/21 16:25 78 100 08/05/21 16:24 67 133/60 08/05/21 16:20 81 100 08/05/21 16:15 78 99 08/05/21 16:10 65 99 08/05/21 16:08 69 129/65 08/05/21 16:05 65 100 08/05/21 16:00 79 20 99 08/05/21 15:55 65 100 08/05/21 15:50 74 100 08/05/21 15:45 64 129/60 100 08/05/21 15:40 70 127/64 100 08/05/21 15:35 67 129/60 100 08/05/21 15:31 82 114/73 08/05/21 15:30 97.9 F 82 82 20 114/73 114/73 100 08/05/21 15:25 66 100 08/05/21 15:22 68 138/59 L 08/05/21 15:20 63 100 08/05/21 15:19 61 149/57 H 08/05/21 15:15 64 100 08/05/21 15:14 66 131/56 L 08/05/21 15:12 61 127/60 08/05/21 15:10 60 138/62 100 08/05/21 15:08 61 136/60 08/05/21 15:06 61 143/71 H 08/05/21 15:05 64 99 08/05/21 15:04 58 L 140/69 08/05/21 15:00 69 69 20 140/69 99 08/05/21 14:57 60 146/89 H 08/05/21 14:55 70 100 08/05/21 14:50 62 99 08/05/21 14:31 58 L 123/83 08/05/21 14:01 60 135/81 08/05/21 14:00 60 20 135/81 08/05/21 13:34 60 116/66 08/05/21 13:00 54 L 130/63 08/05/21 12:26 57 L 20 140/73 08/05/21 12:08 57 L 130/66 08/05/21 11:50 63 133/68 08/05/21 11:30 64 18 130/60 Coding Level of Care Code None Diagnoses Encounter for induction of labor Z34.90
[2021-08-05] MEDS ORDERED: BUPIVACAINE 0.5 % 5 MG/1 ML PF 10ML VIAL ONE (23:29)
--- NOTE | 2021-08-05 23:38 | Communication Note ---
Date of Service: August 05, 2021 pt complains of a "hotspot" on right side. bolused with 5 cc of 0.5% ropivicaine. vss. pt experience improvement in pain.
--- NOTE | 2021-08-06 00:36 | Labor Progress Brief Note ---
Date of Service August 06, 2021 Subjective pt has been evaluated by anesth for pain per nurse. pit has been off amnioinfusion was held due to no extravasation of fluid. Assessment & Plan (1) Encounter for induction of labor: Plan: will try to reposition patient to improve effect of epidural. will reassess fhts as now categ 1 and then restart pitocin as needed for mvu's >200. Admission and Anticipated Discharge Date Admission Date: August 05, 2021 Physical Exam Constitutional: WD/WN, vitals as above Genitourinary: OB Exam Monitor Tracing: + scalp electrode used, + intra- uterine pressure catheter used (inadeq mvu's), + category I and + normal FHT variability Results & Data ([facility]) Vital Signs (Past 12 Hours) Vital Signs Temp Pulse Pulse Resp BP BP Pulse Ox 08/06/21 00:32 71 98 08/06/21 00:27 67 134/71 97 08/06/21 00:22 68 98 08/06/21 00:17 85 98 08/06/21 00:13 57 L 141/79 H 08/06/21 00:12 59 L 97 08/06/21 00:07 60 97 08/06/21 00:02 62 97 08/05/21 23:58 66 137/84 08/05/21 23:57 65 97 08/05/21 23:52 65 97 08/05/21 23:47 78 96 08/05/21 23:42 72 136/80 97 08/05/21 23:39 73 138/78 08/05/21 23:37 69 98 08/05/21 23:36 77 139/83 08/05/21 23:33 61 140/86 08/05/21 23:32 69 97 08/05/21 23:27 68 98 08/05/21 23:25 70 136/86 08/05/21 23:22 67 99 08/05/21 23:17 68 98 08/05/21 23:12 71 96 08/05/21 23:07 81 97 08/05/21 23:02 74 97 08/05/21 23:00 98.8 F 18 08/05/21 22:57 86 97 08/05/21 22:55 72 144/81 H 08/05/21 22:52 76 98 12/23/21 22:47 80 100 12/23/21 22:42 91 H 98 1223/21 22:37 76 98 23/21 22:32 82 98 23/21 22:27 82 98 08/05/21 22:24 78 140/68 12/21 22:22 82 98 08/05/21 22:17 71 98 08/05/21 22:12 80 99 2321 22:07 83 97 21 22:02 83 98 2321 21:57 92 H 98 23/21 21:55 88 139/75 08/05/21 21:52 86 97 23/21 21:47 86 97 08/05/21 21:42 91 H 97 21 21:37 91 H 96 21 21:32 98 H 97 21 21:27 94 H 98 08/05/21 21:25 92 H 138/77 08/05/21 21:22 104 H 98 08/05/21 21:17 81 98 08/05/21 21:13 97.7 F 18 08/05/ 21:12 98 H 97 21 21:07 85 98 08/05/21 21:02 86 98 08/05/21 20:57 91 H 97 21 20:56 85 133/77 08/05/21 20:52 84 98 23/21 20:47 88 98 08/05/21 20:42 91 H 98 23/21 20:37 82 98 21 20:32 88 97 23/21 20:27 74 98 23/21 20:24 75 142/66 H 23/21 20:22 74 98 23/21 20:17 78 98 23/21 20:12 82 98 23/21 20:07 92 H 98 23/21 20:02 87 98 23/21 20:01 18 08/05/21 19:57 83 98 23/21 19:55 88 137/69 08/05/21 19:52 72 97 23/21 19:47 77 97 23/21 19:42 85 97 23/21 19:37 75 97 23/21 19:32 84 98 12/23/21 19:27 81 99 08/05/21 19:24 67 134/73 08/05/21 19:22 78 99 08/05/21 19:17 72 98 08/05/21 19:12 73 98 08/05/21 19:07 73 98 08/05/21 19:02 64 98 08/05/21 19:00 99.3 F 18 08/05/21 18:57 69 98 08/05/21 18:55 66 119/57 L 08/05/21 18:52 69 98 08/05/21 18:47 73 98 08/05/21 18:45 101.7 F H 77 18 147/77 H 99 08/05/21 18:40 61 98 08/05/21 18:35 61 97 08/05/21 18:30 64 98 08/05/21 18:25 91 H 147/77 H 98 08/05/21 18:20 69 98 08/05/21 18:15 67 97 08/05/21 18:10 69 97 08/05/21 18:05 72 99 08/05/21 18:00 71 98 08/05/21 17:55 73 142/68 H 98 08/05/21 17:50 79 97 08/05/21 17:45 86 97 08/05/21 17:40 74 99 08/05/21 17:35 68 97 08/05/21 17:30 81 18 98 08/05/21 17:26 74 123/66 08/05/21 17:25 71 99 08/05/21 17:20 63 99 08/05/21 17:15 61 99 08/05/21 17:10 64 100 08/05/21 17:05 63 100 08/05/21 17:00 61 20 100 08/05/21 16:55 72 99 08/05/21 16:53 63 129/59 L 08/05/21 16:50 70 100 08/05/21 16:45 67 98 08/05/21 16:40 63 99 08/05/21 16:38 63 115/61 08/05/21 16:35 67 99 08/05/21 16:30 60 18 99 08/05/21 16:25 78 100 08/05/21 16:24 67 133/60 08/05/21 16:20 81 100 08/05/21 16:15 78 99 08/05/21 16:10 65 99 08/05/21 16:08 69 129/65 08/05/21 16:05 65 100 08/05/21 16:00 79 20 99 08/05/21 15:55 65 100 08/05/21 15:50 74 100 08/05/21 15:45 64 129/60 100 08/05/21 15:40 70 127/64 100 08/05/21 15:35 67 129/60 100 08/05/21 15:31 82 114/73 08/05/21 15:30 97.9 F 82 82 20 114/73 114/73 100 08/05/21 15:25 66 100 08/05/21 15:22 68 138/59 L 08/05/21 15:20 63 100 08/05/21 15:19 61 149/57 H 08/05/21 15:15 64 100 08/05/21 15:14 66 131/56 L 08/05/21 15:12 61 127/60 08/05/21 15:10 60 138/62 100 08/05/21 15:08 61 136/60 08/05/21 15:06 61 143/71 H 08/05/21 15:05 64 99 08/05/21 15:04 58 L 140/69 08/05/21 15:00 69 69 20 140/69 99 08/05/21 14:57 60 146/89 H 08/05/21 14:55 70 100 08/05/21 14:50 62 99 08/05/21 14:31 58 L 123/83 08/05/21 14:01 60 135/81 08/05/21 14:00 60 20 135/81 08/05/21 13:34 60 116/66 08/05/21 13:00 54 L 130/63 Coding Level of Care Code None Diagnoses Encounter for induction of labor Z34.90
--- NOTE | 2021-08-06 02:35 | Delivery Summary ---
Vaginal Delivery Summary Date of Service August 06, 2021 Vaginal Delivery Summary The patient dilated to complete and pushed to deliver a viable male Apgars 8 and 9 via over intact perineum. Mouth and nose bulb suctioned at perineum. Loose nuchal x 1 reduced. Shoulders and body delivered with ease. Infant was vigorous and crying at . Cord clamped at 30 seconds of life and infant to maternal abdomen where the cord was then doubly clamped and cut. Placenta delivered spontaneously and intact, three-vessel cord. Hemostasis achieved with dilute pitocin and uterine massage and drainage of the bladder for approximately 300 cc under sterile conditions. Small left labial laceration reapproximated with 3-0 vicryl in single figure of eight suture. Cervix and sulci intact. EBL 300 cc. Mother and baby stable recovery. [facility] Vaginal Delivery Charge Delivery Type Details:
[2021-08-06] MEDS ORDERED: OXYTOCIN 30 UNITS/500 ML BAG IV PRN (02:48)
[2021-08-06] MEDS ORDERED: OXYTOCIN 20 UNITS in LACTATED RINGER'S 1,000 ML IV SCH (02:48)
[2021-08-06] MEDS ORDERED: DIPHTHERIA/TETANUS/PERTUSSIS 0.5 ML SYR/VIAL IM ONE (02:48)
[2021-08-06] MEDS ORDERED: ACETAMINOPHEN 325 MG TAB PO PRN (02:48)
[2021-08-06] MEDS ORDERED: SUPERCREAM 0.870% 15 GM JAR EXT PRN (02:48)
[2021-08-06] MEDS ORDERED: oxyCODONE/ACETAMINOPHEN 5mg/325mg TAB PO PRN (02:48)
[2021-08-06] MEDS ORDERED: HYDROCORTISONE ACETATE 25 MG SUPP PR PRN (02:48)
[2021-08-06] MEDS ORDERED: BENZOCAINE 20% AER SPR 82.5 GM CAN EXT PRN (02:48)
[2021-08-06] MEDS: IBUPROFEN 600 MG TAB PO PRN ×4 (05:09→20:12)
--- NOTE | 2021-08-06 08:04 | Anesthesia Procedure Note ---
Date of Service August 06, 2021 Anesthesia Post Epidural Note Vital Signs Vital Signs: Temp Pulse Resp BP Pulse Ox 36.7 C 18 L 18 138/74 96 08/06/21 07:13 08/06/21 07:13 08/06/21 07:13 08/06/21 07:13 08/06/21 07:13 Pain Intensity Right Lower Abdomen: Pain Intensity: 4 Notes Mental Status: alert / awake / arousable and participated in evaluation Patient Amnestic to Procedure: No Nausea / Vomiting: adequately controlled Pain: adequately controlled Airway Patency, RR, SpO2: stable & adequate BP & HR: stable & adequate Hydration State: stable & adequate Neuraxial Anesthesia: was administered and sensory block resolved Anesthetic Complications: no major complications apparent and Pt Satisfied with anesthetic care Epidural: Removed without complications and With tip intact
[2021-08-06] MEDS: PRENATAL VITAMIN 1 TAB PO SCH (08:09)
[2021-08-06] MEDS: DOCUSATE SODIUM 100 MG CAP PO SCH ×2 (08:09→20:12)
[2021-08-07] MEDS: IBUPROFEN 600 MG TAB PO PRN ×3 (05:43→09:23)
[2021-08-07 06:30] LABS: Hematocrit (blood only) 35.8 % (37-47); Mean Corpuscular Hemoglobin 32.1 pg (25-34); Mean Corpuscular Hgb Conc 33.5 g/dL (32-36); Mean Corpuscular Volume 95.7 fL (80-100); Platelet Count 200 K/uL (130-400); RDW Standard Deviation 45.4 fL (36.4-46.3); Red Blood Count 3.74 M/uL (4.2-5.4); White Blood Count 14.84 K/uL (4.8-10.8)
--- NOTE | 2021-08-07 07:18 | Obstetrical Progress Note ---
Date of Service August 07, 2021 Assessment & Plan (1) state: 26 yo PP1 from , doing well -Meeting all pp milestones -O+/rubella immune/ -f/u 6 weeks for appt, stable for d/c home Subjective Ambulation: ambulating normally Voiding: no voiding problems Passing Gas:: Yes Diet Tolerance:: regular diet Lochia:: Small Feeding Type:: breast feeding Pain well managed with medication Review of Systems Denies fevers, chills, n/v, LOYD, CP, SOB Physical Exam Constitutional WD/WN, vitals as above no acute distress Respiratory normal respiratory effort, lungs clear to auscultation Cardiovascular RRR, no murmur, no edema Gastrointestinal (Abdomen) Percussion/Palpation: abdomen soft; abdomen nontender fundus firm at umbilicus and NT Musculoskeletal BLE symmetric, nonerythematous, nontender Results & Data ([facility]) Vital Signs (Past 12 Hours) Vital Signs Temp Pulse Resp BP Pulse Ox 08/06/21 23:50 98.4 F 63 16 136/80 98 08/06/21 19:45 98.4 F 63 16 138/82 98
[2021-08-07] MEDS: PRENATAL VITAMIN 1 TAB PO SCH (09:23)
[2021-08-07] MEDS: DOCUSATE SODIUM 100 MG CAP PO SCH (09:23)
== END 2021-08-07 14:15 | disposition home health service (06) | DRG 807 ==
LOC: 4S1 08:00 → 4S2 08-06 06:10